=== PATIENT | female | born 1970 | race Caucasian/White ===

== ENCOUNTER 2016-12-31 | Outpatient (CLI) | payer OTHER | END 2016-12-31 07:31 | disposition critical access hospital (66) | CPT/HCPCS: A0425; A0429 ==

== ENCOUNTER 2016-12-31 08:00 | Emergency (ER) | payer OTHER ==
[2016-12-31] MEDS ORDERED: ONDANSETRON ODT 4 MG TABLET TL STA (09:54)
[2016-12-31] MEDS ORDERED: HYDROmorphone 1 MG/ML SYRINGE IM STA (09:54)
[2016-12-31] MEDS ORDERED: HYDROmorphone 1 MG/ML SYRINGE ONE (09:54)
[2016-12-31] MEDS ORDERED: ONDANSETRON ODT 4 MG TABLET ONE (09:55)
== END 2016-12-31 10:48 | disposition home or self-care (01) ==
DX: S16.1XXA Strain of muscle, fascia and tendon at neck level, initial encounter (principal); S40.012A Contusion of left shoulder, initial encounter; V89.2XXA Person injured in unspecified motor-vehicle accident, traffic, initial encounter; Y92.488 Other paved roadways as the place of occurrence of the external cause; Z95.0 Presence of cardiac pacemaker
CPT/HCPCS: 72125; 73030; 96372; 99283; 99284; J1170; Q0162

== ENCOUNTER 2017-06-14 17:03 | Emergency (ER) | payer OTHER ==
[2017-06-14] MEDS ORDERED: AMOX/CLAV 875 MG/125 MG TABLET PO STA (17:43)
[2017-06-14] MEDS ORDERED: TETANUS/DIPHTHERIA/PERTUSSIS 0.5 ML SYRINGE IM ONE ×2 (17:43→17:47)
[2017-06-14] MEDS ORDERED: ACETAMINOPHEN 325 MG TABLET PO STA (17:43)
[2017-06-14] MEDS ORDERED: AMOX/CLAV 875 MG/125 MG TABLET PO ONE (17:47)
[2017-06-14] MEDS ORDERED: ACETAMINOPHEN 325 MG TABLET PO ONE (17:47)
[2017-06-14] MEDS ORDERED: HYDROCORTISONE SUCCINATE 100 MG/2 ML VIAL IVP STA ×2 (17:49→17:55)
[2017-06-14] MEDS ORDERED: HYDROCORTISONE SUCCINATE 100 MG/2 ML VIAL IVP ONE (17:54)
--- NOTE | 2017-06-14 17:55 | ED Physician Documentation ---
History of Present Illness - Stated complaint Stated Complaint: RT HAND CAT BITE - Chief complaint Chief Complaint: Ext Problem - Additonal information Additional information: hx from pt 46 f bit by her healthy immunized cat who was frightened by a dog bit at base of dominant right hand approx 10-15 after the bite she developed local swelling and some dec sensation the the thumb hx severe infection to L hand following a cat bite which required surgery she take florinef for her heart / low BP and needs a stress dose of hydrocortisone Review of Systems Constitutional: denies: Fever Skin: reports: Bite / sting Musculoskeletal: reports: Extremity swelling Neurologic: reports: Numbness Immunocompromised: denies: Immunocompromised (on florinef so slightly) PD PAST MEDICAL HISTORY - Past Medical History Cardiovascular: Other Respiratory: None Neuro: None Endocrine/Autoimmune: None GI: GERD REGISTERED NURSE SURGICAL SERVICES: None : None HEENT: None Psych: Depression Musculoskeletal: None Derm: None - Past Surgical History Past Surgical History: Yes General: Appendectomy, Gastric surgery /REGISTERED NURSE SURGICAL SERVICES: Hysterectomy Cardiovascular: Pacemaker - Present Medications Home Medications: Ambulatory Orders Medication Instructions Recorded Confirmed Amitriptyline [Elavil] 75 mg PO DAILY 03/05/15 06/14/17 Buprenorphine HCl/Naloxone HCl 1 tab PO DAILY 03/05/15 06/14/17 [Suboxone 2 mg-0.5 mg Sl Film] Diclofenac Potassium [Zipsor] 25 mg PO DAILY 03/05/15 06/14/17 Fludrocortisone [Florinef] 0.1 mg PO DAILY 03/05/15 06/14/17 Midodrine HCl 2.5 mg PO DAILY 03/05/15 06/14/17 PARoxetine [Paxil] 10 mg PO DAILY 03/05/15 06/14/17 Tizanidine HCl [Tizanidine HCl] 4 mg PO DAILY 12/31/16 06/14/17 Amox/Clav 875/125 [Augmentin] 1 each PO Q12H #10 tablet 06/14/17 Meloxicam 15 mg PO DAILY 06/14/17 06/14/17 - Allergies Allergies/Adverse Reactions: Allergies Allergy/AdvReac Type Severity Reaction Status Date / Time codeine Allergy Rash Verified 12/31/16 08:08 Sulfa (Sulfonamide Allergy Rash Verified 12/31/16 08:08 Antibiotics) - Social History Does the pt smoke?: No Smoking Status: Never smoker Does the pt drink ETOH?: No Does the pt have substance abuse?: No - Immunizations Immunizations are current?: No Immunizations: TDAP >10years/unknown - POLST Patient has POLST: No PD ED PE NORMAL - Vitals Vital signs reviewed: Yes - Cardiac Cardiac: RRR - Respiratory Respiratory: No respiratory distress, Clear bilaterally - Extremities Extremities: Other (R hand with puncture alamo to palmar / thenar eminence, tender, mild swelling, no erythema, able to flex and extend MCP and IP, sluight dec sensation to thumb, + cap refill) Results - Vitals Vitals: Vital Signs - 24 hr 06/14/17 17:05 Temperature 36.0 C L Heart Rate 105 H Respiratory 20 Rate Blood Pressure 150/101 H O2 Saturation 99 Oxygen O2 Source Room air PD MEDICAL DECISION MAKING - ED course ED course: wound carefully cleaned given augmentin and tdap as well as stress dose hydrocortisone will dc with 48 hr wound check Departure - Departure Disposition: Home, Self Care Clinical Impression: Cat bite Qualifiers: Encounter type: initial encounter Qualified Code(s): W55.01XA - Bitten by cat, initial encounter Condition: Good Instructions: ED Bite Animal General Follow-Up: Boni Lawson MD [Primary Care Provider] - (Friday for a wound check) Prescriptions: Amox/Clav 875/125 [Augmentin] 1 each PO Q12H #10 tablet Comments: Even with antibiotics, cat bites are notorious for getting infected. It is very very important that you get this wound rechecked in 48 hr - if you cannot be seen by your PMD come back to the ER and see me Friday before 4PM Return sooner if worse before then I am hopeful that the sensation will return - if the bite had lacerated the nerve the thumb would have become instantly numb not slowly over 10-15 minutes Both your heart rate and your blood pressure were elevated - please have them rechecked at your follow up appointment
[2017-06-14 18:30] VITALS: BP 148/89
== END 2017-06-14 18:33 | disposition home or self-care (01) ==
LOC: ED 17:03
DX: S61.451A Open bite of right hand, initial encounter (principal); W55.01XA Bitten by cat, initial encounter; K21.9 Gastro-esophageal reflux disease without esophagitis; Z98.84 Bariatric surgery status; R03.0 Elevated blood-pressure reading, without diagnosis of hypertension
CPT/HCPCS: 90471; 90715; 96374; 99283; A9270

== ENCOUNTER 2018-06-30 22:35 | Emergency (ER) | payer OTHER ==
--- NOTE | 2018-07-01 01:51 | ED Physician Documentation ---
PD HPI ABD PAIN - Stated complaint Stated Complaint: LOW AB PX - Chief complaint Chief Complaint: Abd Pain - History obtained from History obtained from: Patient - History of Present Illness Timing - onset: How many months ago (3-6 months (patient says three months, [id number] (present at bedside in room) says at least six months)) Timing - duration: Months Timing - details: Still present, Waxing and waning Improved by: Laying still Worsened by: Moving, Palpation Associated symptoms: Nausea, Vomiting. No: Fever Similar symptoms before: Other (see below) - Additional information Additional information: ongoing pain across pelvis for several months. was seen at [facility] a week ago, had US and then CT, revealed bilateral ovarian cysts (patient says several cysts on each ovary). she says she is to meet with a surgeon to have both ovaries removed. this was discussed when she was see by her home security professional earlier today. she presents to ED at this time due to ongoing pain, nausea, vomiting, cant keep anything down (per patient). Review of Systems Constitutional: reports: Reviewed and negative Throat: reports: Reviewed and negative Cardiac: reports: Reviewed and negative Respiratory: reports: Reviewed and negative GI: reports: Abdominal Pain, Nausea, Vomiting : denies: Dysuria, Frequency Skin: denies: Rash PD PAST MEDICAL HISTORY - Past Medical History Past Medical History: Yes Cardiovascular: Other Respiratory: None Neuro: None Endocrine/Autoimmune: None GI: None DIRECT CARE COUNSELOR: Ovarian cysts : None HEENT: None Psych: None Musculoskeletal: None Derm: None - Past Surgical History Past Surgical History: Yes General: Appendectomy, Gastric surgery /DIRECT CARE COUNSELOR: Hysterectomy Cardiovascular: Pacemaker - Present Medications Home Medications: Ambulatory Orders Medication Instructions Recorded Confirmed Amitriptyline [Elavil] 75 mg PO DAILY 03/05/15 06/14/17 Buprenorphine HCl/Naloxone HCl 1 tab PO DAILY 03/05/15 06/14/17 [Suboxone 2 mg-0.5 mg Sl Film] Diclofenac Potassium [Zipsor] 25 mg PO DAILY 03/05/15 06/14/17 Fludrocortisone [Florinef] 0.1 mg PO DAILY 03/05/15 06/14/17 Midodrine HCl 2.5 mg PO DAILY 03/05/15 06/14/17 PARoxetine [Paxil] 10 mg PO DAILY 03/05/15 06/14/17 Tizanidine HCl [Tizanidine HCl] 4 mg PO DAILY 12/31/16 06/14/17 Amox/Clav 875/125 [Augmentin] 1 each PO Q12H #10 tablet 06/14/17 Meloxicam 15 mg PO DAILY 06/14/17 06/14/17 Ondansetron Odt [Zofran] 4 mg TL Q6H PRN #14 tablet 07/01/18 Oxycodone HCl 5 - 10 mg PO Q6HR PRN #14 tablet 07/01/18 - Allergies Allergies/Adverse Reactions: Allergies Allergy/AdvReac Type Severity Reaction Status Date / Time codeine Allergy Rash Verified 07/01/18 01:34 Sulfa (Sulfonamide Allergy Rash Verified 07/01/18 01:34 Antibiotics) - Social History Does the pt smoke?: No Smoking Status: Never smoker Does the pt drink ETOH?: Yes ETOH Use: Liquor Does the pt have substance abuse?: No - Immunizations Immunizations are current?: Yes Immunizations: TDAP >10years/unknown - POLST Patient has POLST: No PD ED PE NORMAL - Vitals Vital signs reviewed: Yes - General General: Alert and oriented X 3, No acute distress, Well developed/nourished - HEENT HEENT: Moist mucous membranes - Cardiac Cardiac: RRR, No murmur - Respiratory Respiratory: No respiratory distress, Clear bilaterally - Abdomen Abdomen: Normal bowel sounds, Soft, Non distended, Other (mild tenderness bilateral lower quadrants/pelvis) - Back Back: No CVA TTP - Derm Derm: Normal color, Warm and dry, No rash - Extremities Extremities: No edema Results - Vitals Vitals: Vital Signs - 24 hr 07/01/18 07/01/18 07/01/18 03:21 05:00 06:35 Temperature 37.1 C 36 C L Heart Rate 101 H 101 H 88 Respiratory 16 14 16 Rate Blood Pressure 129/87 H 112/82 H 116/68 O2 Saturation 99 96 100 Oxygen O2 Source Room air - Labs Labs: Laboratory Tests 07/01/18 07/01/18 07/01/18 02:25 02:25 03:30 WBC 6.3 RBC 4.19 L Hgb 13.2 Hct 39.0 MCV 93.1 MCH 31.6 H MCHC 33.9 RDW 13.4 Plt Count 240 MPV 7.8 L Neut # (Auto) 2.9 Lymph # (Auto) 2.9 [place] # (Auto) 0.4 Eos # (Auto) 0.1 Baso # (Auto) 0.0 Absolute Nucleated RBC 0.00 Nucleated RBC % 0.0 Sodium 138 Potassium 4.1 Chloride 100 L Carbon Dioxide 27 Anion Gap 11.0 BUN 10 Creatinine 0.9 Estimated GFR (MDRD) 67 L Glucose 103 H Calcium 8.5 Total Bilirubin 0.5 AST 42 ALT 28 Alkaline Phosphatase 89 Total Protein 6.2 L Albumin 3.3 Globulin 2.9 Albumin/Globulin Ratio 1.1 Lipase 25 Urine Color YELLOW Urine Clarity CLEAR Urine pH 6.5 Ur Specific [place] <=1.005 Urine Protein NEGATIVE Urine Glucose (UA) NEGATIVE Urine Ketones NEGATIVE Urine Occult Blood NEGATIVE Urine Nitrite NEGATIVE Urine Bilirubin NEGATIVE Urine Urobilinogen 0.2 (NORMAL) Ur Leukocyte Esterase NEGATIVE Ur Microscopic Review NOT INDICATED Urine Culture Comments NOT INDICATED - Rads (name of study) CT A/P Radiology: Prelim report reviewed, See rad report PD MEDICAL DECISION MAKING - ED course Complexity details: reviewed results, re-evaluated patient, considered differential, d/w patient, d/w family ED course: reassuring blood test results. CT reveals right adnexal findings, possibly ovarian cysts or hydrosalpinx. no findings that would suggest acute pathology that would require nor benefit from epfurther emergent testing or treatment at this time beyond symptom control. patient reported excellent relief of nausea with zofran. she reported some pain relief with dilaudid, given second dose. was in NAD, and laughing when I entered room for second reevaluation. we discussed test results, plan to discharge and f/u plan (return if worse, contact home security professional in AM to pursue earliest available appointment). patient seemed comfortable with this plan. Patients [id number] made it clear she was not happy with this plan: she feels that after so many months of discomfort, something needs to be done now. I explained that her symptoms have been controlled and the test results do not suggest an emergent process that requires aggressive management at this time. - Sepsis Event Vital Signs: Vital Signs - 24 hr 07/01/18 07/01/18 07/01/18 03:21 05:00 06:35 Temperature 37.1 C 36 C L Heart Rate 101 H 101 H 88 Respiratory 16 14 16 Rate Blood Pressure 129/87 H 112/82 H 116/68 O2 Saturation 99 96 100 Oxygen O2 Source Room air Departure - Departure Disposition: 01 Home, Self Care Clinical Impression: Cyst of ovary Condition: Good Instructions: ED Cyst Ovarian Follow-Up: KARINA SEWELL DO [Primary Care Provider] - Within 3 Days Prescriptions: Oxycodone HCl 5 - 10 mg PO Q6HR PRN #14 tablet PRN Reason: Pain Ondansetron Odt [Zofran] 4 mg TL Q6H PRN #14 tablet PRN Reason: Nausea / Vomiting Discharge Date/Time: 07/01/18 06:35
[2018-07-01] MEDS ORDERED: SODIUM CHLORIDE 0.9% 1,000 ML IV STA (02:08)
[2018-07-01] MEDS ORDERED: HYDROmorphone 1 MG/ML CARPUJECT IVP STA ×2 (02:08→04:29)
[2018-07-01] MEDS ORDERED: ONDANSETRON 4 MG/2 ML VIAL IVP STA (02:08)
[2018-07-01 02:40] LABS: BASOPHILS % (AUTO) 0.6 %; EOSINOPHILS # (AUTO) 0.1 10^3/uL (0.0-0.7); EOSINOPHILS % (AUTO) 1.9 %; HGB - HEMOGLOBIN 13.2 g/dL (12.0-16.0); LYMPHOCYTES # (AUTO) 2.9 10^3/uL (1.5-3.5); LYMPHOCYTES % (AUTO) 45.4 %; MEAN CORPUSCULAR HEMOGLOBIN 31.6 pg (27.0-31.0); MEAN CORPUSCULAR HGB CONC 33.9 g/dL (32.0-36.0); MEAN CORPUSCULAR VOLUME 93.1 fL (81.0-99.0); MEAN PLATELET VOLUME 7.8 fL (7.9-10.8); MONOCYTES # (AUTO) 0.4 10^3/uL (0.0-1.0); MONOCYTES % (AUTO) 5.8 %; NEUTROPHILS # (AUTO) 2.9 10^3/uL (1.5-6.6); NEUTROPHILS % (AUTO) 46.3 %; PLT - PLATELET COUNT 240 10^3/uL (130-450); RED BLOOD COUNT 4.19 10^6/uL (4.20-5.40); RED CELL DISTRIBUTION WIDTH 13.4 % (12.0-15.0); WHITE BLOOD COUNT 6.3 x10^3/uL (4.8-10.8)
[2018-07-01 02:45] LABS: ALBUMIN 3.3 g/dL (3.2-5.5); ALBUMIN/GLOBULIN RATIO 1.1 (1.0-2.2); BILIRUBIN,TOTAL 0.5 mg/dL (0.2-1.0); CALCIUM 8.5 mg/dL (8.5-10.3); CREATININE 0.9 mg/dL (0.4-1.0); TOTAL PROTEIN 6.2 g/dL (6.7-8.2)
[2018-07-01] MEDS ORDERED: IOPAMIDOL-300 100 ML VIAL ONE (02:59)
[2018-07-01] MEDS ORDERED: IOPAMIDOL-300 100 ML VIAL IVP ONE (03:23)
[2018-07-01 03:39] LABS: BILIRUBIN,URINE NEGATIVE (NEGATIVE); GLUCOSE, URINE (UA) NEGATIVE (NEGATIVE); KETONES,URINE (UA) NEGATIVE (NEGATIVE); LEUKOCYTE ESTERASE, URINE NEGATIVE (NEGATIVE); NITRITE,URINE NEGATIVE (NEGATIVE); OCCULT BLOOD,URINE NEGATIVE (NEGATIVE); PH,URINE 6.5 PH (5.0-7.5); PROTEIN,URINE NEGATIVE (NEGATIVE); UROBILINOGEN,URINE 0.2 (NORMAL) E.U./dL (NORMAL)
--- NOTE | 2018-07-01 03:46 | CT Report ---
Procedure Date: 07/01/2018 Accession Number: [id number] / [id number] Procedure: CT - Abdomen/Pelvis W/ CPT Code: FULL RESULT: EXAM: CT ABDOMEN AND PELVIS EXAM DATE: 07/01/2018 03:26 AM. CLINICAL HISTORY: Abdominal pain. History of multiple ovarian cysts. COMPARISONS: None. TECHNIQUE: Routine helical CT imaging was performed through the abdomen and pelvis. IV contrast: ISOVUE 300 100mL. Enteric contrast: No. Reconstructions: Coronal and sagittal. In accordance with CT protocol optimization, one or more of the following dose reduction techniques were utilized for this exam: automated exposure control, adjustment of mA and/or KV based on patient size, or use of iterative reconstructive technique. FINDINGS: Lung Bases: Unremarkable. Liver: Fatty infiltration. Gallbladder/Bile Ducts: Status post cholecystectomy. Spleen: Normal. Pancreas: Normal. Adrenal Glands: Normal. Kidneys: Normal. No masses or hydronephrosis. Peritoneal Cavity/Bowel: Moderate to large amount of stool in the colon and rectum. Small bowel loops measuring up to 4.0 cm with air-fluid levels. This may be related to gastric bypass. A definite bowel obstruction is not seen. No diverticulitis seen. No free air or free fluid. Normal-sized mesenteric lymph nodes. Appendix is not well seen. No evidence of appendicitis. Pelvic Organs: Lobulated enlarged partially cystic right adnexa measuring 5.3 x 5.1 cm. Uterus is not seen. Urinary bladder and left ovary are unremarkable. Vasculature: No aneurysms or other significant abnormality. Bones: Degenerative changes at L4-L5. Other: None. IMPRESSION: 1. Gastric bypass with some mildly dilated fluid-filled small bowel loops and air-fluid levels, possibly related to bypass. Definite obstruction not identified. 2. Moderate to large amount of stool in the colon and rectum. 3. Fatty liver. 4. Partially cystic right adnexal process measuring 5.3 x 5.1 cm. This could represent ovarian cysts and/or hydrosalpinx. Neoplastic process less likely but not entirely excluded. Consider ultrasound follow-up. 5. Appendix is not well seen. No evidence of appendicitis. RADIA
[2018-07-01 04:00] LABS: CLARITY,URINE CLEAR (CLEAR)
[2018-07-01 06:40] VITALS: BP 116/68
--- NOTE | 2018-07-01 12:15 | ED Physician Documentation ---
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
== END 2018-07-01 06:35 | disposition home or self-care (01) ==
LOC: ED 22:35
DX: N83.201 Unspecified ovarian cyst, right side (principal)
CPT/HCPCS: 36415; 74177; 80053; 81003; 83690; 85025; 96361; 96374; 96376; 99283; 99284; J1170; Q9967; 81001; 87086

== ENCOUNTER 2018-07-09 16:26 | Outpatient (CLI) | payer OTHER | END 2018-07-09 16:27 | disposition home or self-care (01) | LOC: LAB 16:26 | PROVIDERS: ATTEND Obstetrics & Gynecology | DX: N83.201 Unspecified ovarian cyst, right side (principal) | CPT/HCPCS: 36415; 86304 ==

== ENCOUNTER 2018-08-25 11:41 | Outpatient (CLI) | payer OTHER | END 2018-08-25 11:42 | disposition critical access hospital (66) | LOC: EMS 11:41 | PROVIDERS: ATTEND Surgery | DX: R07.9 Chest pain, unspecified (principal); M54.2 Cervicalgia; V43.52XA Car driver injured in collision with other type car in traffic accident, initial encounter; Y92.413 State road as the place of occurrence of the external cause | CPT/HCPCS: A0425; A0429 ==

== ENCOUNTER 2018-08-25 12:00 | Emergency (ER) | payer OTHER ==
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
[2018-08-25] MEDS ORDERED: IBUPROFEN 600 MG TABLET PO STA (12:55)
[2018-08-25] MEDS ORDERED: METHOCARBAMOL 500 MG TABLET PO STA (12:56)
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
[2018-08-25 14:07] VITALS: BP 126/82
== END 2018-08-25 14:10 | disposition home or self-care (01) ==
LOC: EDUNIT# → ED 12:00
DX: S16.1XXA Strain of muscle, fascia and tendon at neck level, initial encounter (principal); S39.012A Strain of muscle, fascia and tendon of lower back, initial encounter; V43.52XA Car driver injured in collision with other type car in traffic accident, initial encounter; Z95.0 Presence of cardiac pacemaker
CPT/HCPCS: 71046; 72125; 72131; 99283; A9270

== ENCOUNTER 2018-09-02 07:42 | Day surgery (SDC) | payer OTHER ==
--- NOTE | 2018-09-01 19:36 | PREOP HISTORY & PHYSICAL ---
DATE OF ADMISSION: 09/02/2018 Physician: Janene Beaver DO FACOG IDENTIFICATION: A 47-year-old G0. HISTORY OF PRESENT ILLNESS: Sofia presents today with her [id number] nearly for a scheduled presurgical visit. I first met Sofia on 07/09/2018. She was a referral from [facility] due to a complex right ovarian cyst and 8/10 pain. Sofia states that during her cycles about 6-7 months ago, she had significant pain that started in her back. The pain at that time was mild and Midol did help. The pain progressively got worse to the point where she was having dry heaves and could not move. Her teeth actually hurt. She experienced a constant ache. She does recall Dilaudid did help her pain. When her cycle ends, the pain does stop. She does have breast and nipple tenderness and an obnoxious cramping when her cycle ends. Her cycles last every 28 days and would be consistent with her menstruation. Sofia is status post hysterectomy. She does recall, she did have heavy menstruation and a history of endometriosis. When Sofia did have her hysterectomy, she recalls that she had a history of ruptured ovarian cysts. This pain really is very similar to such that she had. Currently, she is having hot flushes that is tolerable with a misting fan. She denies any night sweats. Sofia, at this point in time, would like to proceed to laparoscopic bilateral salpingectomy. I discussed with Sofia the risks, benefits, alternatives, indications, expectations of laparoscopic bilateral salpingo-oophorectomy with possible lysis of adhesions and excision or ablation of endometriotic implants. Included in our discussion were the risks of hemorrhage, infection and damage to surrounding organs, which may include, but is not limited to an inadvertent laceration, cauterization or ligation of adjacent intestines, bladder and ureters. Furthermore, with the surgery, she will definitely not be able to have children. With this type of surgery, she may have nerve pain and chronic pelvic pain secondary to adhesions. After Sofia's questions were answered to her satisfaction, she verbalized her desire to proceed with surgery. Consent forms have been signed. Currently, Sofia is doing well. Denies any nausea, vomiting, fevers, chills, diarrhea or constipation. PAST MEDICAL HISTORY: 1. Anxiety. 2. Cardiac arrhythmia. 3. 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 4. Hyperlipoproteinemia. 5. Impaired glucose tolerance. 6. Migraine headaches. 7. Rheumatoid arthritis in her hips. PAST SURGICAL HISTORY: 1. On 11/24/2008, TVH at [facility]. 2. On 07/25/2007, pacemaker implantation. 3. On 11/24/2004, gastric bypass. 4. In 1992, open appendectomy. 5. On 07/15/2018, a pacemaker generator change at [facility] with Dr. Adolfo Rowe. ALLERGIES: 1. TO CODEINE, WHICH SHE HAS HALLUCINATIONS. 2. SULFA DRUGS, WHICH SHE HAS A RASH. MEDICATIONS: 1. Amitriptyline 25 mg 1 tab p.o. at bedtime. 2. Buprenorphine - naloxone 2/0.5 mg. 3. Meloxicam 7.5 mg. 4. Metoprolol 25 mg. 5. Paxil 30 mg. 6. Tizanidine 4 mg. SOCIAL HISTORY: Denies any tobacco or illicit drug use. She does consume alcohol on a social basis. 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 Sofia is to Bob and her [id number] is Chen. PAST SURGICAL HISTORY: Nulligravida PAST GYNECOLOGIC HISTORY: She states the passers were within normal limits and denies any history of sexually transmitted diseases. Sofia did have heavy and painful periods. She does not recall that she had fertility treatments in the past and gained weight. In the past, she was on control pills and did well on them. S/p TVT in 2008. FAMILY HISTORY: Unknown as she was adopted. REVIEW OF SYSTEMS: Negative, unless otherwise stated. PHYSICAL EXAMINATION: VITAL SIGNS: Weight 199 pounds, height is 67 inches, BMI is 31.2, blood pressure 118/68. GENERAL: Sofia is a well-developed, well-nourished, female who appears to be older than her stated age. Sofia; however, is alert and oriented x3. She is very pleasant and easy to speak to. HEENT: Within normal limits. HEART: Regular, no murmurs or rubs. LUNGS: Lungs are clear to auscultation bilaterally. ABDOMEN: Nontender. No signs of peritonitis. She does have a well-healed right paramidline vertical incision. LABORATORY DATA: On ,08/01/2018, white count was 6.4, H and H 12.2 and 36.5, platelets 221, potassium 4.5, glucose 98, creatinine 0.86. On 07/09/2018, CA- 125 was 9.6. IMAGING DATA: On 05/29/2018, pelvic ultrasound shows uterus and cervix are surgically absent, right ovary inseparable from at least 3 simple ovarian and/or paraovarian cysts versus 1 or 2 cysts. The larger with a vascular internal septations of if 2 cysts present. A largest complex cyst versus 2 adjacent cysts 5.4 x 30. x 3.6 cm in aggregate and simple. A smaller simple cyst 2.5 cm ovarian tissue posterior and inferior. Normal blood flow aggregate size of right ovary including cyst is 6.0 x 4.3 x 4.5 cm. Left ovarian cyst is simple measuring 2.5 x 2.4 x 2.6 cm with some surrounding normal parenchyma and normal blood flow, entire left ovary 3.2 x 3.4 x 2.9 cm with 16 mL. No adnexal masses. No pelvic fluid. On 05/13/2018, CT of the abdomen and pelvis shows a right simple ovarian cyst in 2010 no longer evident, multicystic character right ovary 2012 more similar to present study, although ovary 3 x 4 x 6 cm status post gastric bypass, cholecystectomy and hysterectomy. ASSESSMENT: 1. A 47-year-old G0. 2. Bilateral ovarian cysts. 3. The patient reported history of endometriosis. 4. On Suboxone for chronic back pain. She has been told by her pain provider to stop Suboxone at least 1 day before surgery. PLAN: 1. We will proceed to a scheduled laparoscopic bilateral salpingo-oophorectomy with possible lysis of adhesions and possible excision and/or ablation of endometriotic implants on 09/02/2018. 2. Anticipate giving a Sofia a Depo estrogen in recovery, so that her recovery can be easier without worry about surgical menopause. We will discuss at future visits should we continue her on ERT. 3. I discussed with Sofia that her pain will be difficult to control given that she is currently on Suboxone. We will plan to have Sofia to continue with ibuprofen as well as Tylenol. In addition, she will be given a prescription for Dilaudid, #40 tablets 2 mg. I cautioned Sofia that she has to have good pain control if she is to heal appropriately. I did tell Sofia that she will be on Dilaudid for a short period of time. After all Sofia's questions were answered to her satisfaction, she verbalized her desire to proceed with surgery. Consent forms have been signed. Sofia to return to see me in 2 weeks for routine postoperative examination. Again, we will discuss option of continuing Sofia on ERT. TD: 09/01/2018 17:31 [email or web address]
[2018-09-02] MEDS ORDERED: ACETAMINOPHEN 1,000 MG/100 ML 100 ML IV ONE (07:48)
[2018-09-02] MEDS ORDERED: CELECOXIB 100 MG CAPSULE PO ONE (07:49)
[2018-09-02] MEDS ORDERED: LACTATED RINGERS 1,000 ML IV ONE ×2 (08:06→10:36)
--- NOTE | 2018-09-02 08:15 | ANESTHESIA ---
Pre-Anesthesia VS, & Labs - Diagnosis Chronic Pelvic pain - Procedure Laparoscopic Bilateral Salpingoohrectomy Vital Signs: Temp Pulse Resp BP Pulse Ox 36.1 C L 75 18 82/68 L 98 09/02/18 07:50 09/02/18 07:50 09/02/18 07:50 09/02/18 07:50 09/02/18 07:50 Height 5 ft 7 in Weight (kg) 90 kg Body Mass Index 30.8 - NPO >8 hours - Is Patient ?: No - Lab Results Lab results reviewed: Yes Home Medications and Allergies Amitriptyline [Elavil] 75 mg PO DAILY 03/05/15 Buprenorphine HCl/Naloxone HCl [Suboxone 2 mg-0.5 mg Sl Film] 1 tab PO DAILY 03/05/15 PARoxetine [Paxil] 10 mg PO DAILY 03/05/15 Tizanidine HCl 4 mg PO DAILY 12/31/16 Metoprolol Succinate 1 tab PO DAILY 08/25/18 Allergies/Adverse Reactions: Allergies Allergy/AdvReac Type Severity Reaction Status Date / Time codeine Allergy Rash Verified 07/01/18 01:34 Sulfa (Sulfonamide Allergy Rash Verified 07/01/18 01:34 Antibiotics) morphine AdvReac Headache Verified 08/25/18 12:11 Anes History & Medical History - Anesthetic History Anesthesia Complications: reports: No previous complications Family history of Anesthesia Complications: Denies Family history of Malignant Hyperthermia: Denies - Medical History Cardiovascular: reports: Other (Pacemaker) Pulmonary: reports: None Gastrointestinal: reports: None Urinary: reports: None Neuro: reports: None Musculoskeletal: reports: Rheumatoid arthritis (Hips and low back) Endocrine/Autoimmune: reports: None Blood Disorders: reports: None Skin: reports: None Smoking Status: Never smoker - Surgical History General: Appendectomy, Gastric surgery (Gastric Bypass) Cardiothoracic: Pacemaker Gynecologic: Hysterectomy Exam General: Alert, Oriented x3, Cooperative, No acute distress Dental: WNL Mouth Openin Fingerbreadth Neck Mobility: Normal Mallampati classification: II Thyromental Distance: 4-6 cm Respiratory: Lungs clear, Normal breath sounds, No respiratory distress, No accessory muscle use Cardiovascular: Regular rate, Normal S1, Normal S2, No murmurs Mental/Cognitive Status: Alert/Oriented X3, Normal for patient Cognitive Status: Within normal limits Plan Anesthesia Type: General (possible post op TAP block if unable to control pain with conventional methods. Risk and benefits discussed with patient and she agrees to proceed if necessary) Consent for Procedure(s) Verified and Reviewed: Yes Code Status: Attempt Resuscitation ASA classification: 2-Mild systemic disease Is this case an emergency?: No
[2018-09-02] MEDS ORDERED: BUPIVACAINE 0.5%-EPI 1:200000 PF 30 ML VIAL ONE (09:13)
[2018-09-02] MEDS ORDERED: ROCURONIUM 50 MG/5 ML VIAL IVP ONE (09:30)
[2018-09-02] MEDS ORDERED: LIDOCAINE-MPF 2% 5 ML VIAL IM ONE (09:30)
[2018-09-02] MEDS ORDERED: ONDANSETRON 4 MG/2 ML VIAL IVP ONE (09:30)
[2018-09-02] MEDS ORDERED: MIDAZOLAM 2 MG/2 ML VIAL IVP ONE (09:30)
[2018-09-02] MEDS ORDERED: DEXAMETHASONE 4 MG/ML VIAL IVP ONE (09:30)
[2018-09-02] MEDS ORDERED: KETOROLAC 30 MG/ML VIAL IVP ONE (09:30)
[2018-09-02] MEDS ORDERED: PROPOFOL 200 MG/20 ML VIAL IVP ONE (09:30)
[2018-09-02] MEDS ORDERED: fentaNYL 100 MCG/2 ML VIAL IVP ONE (09:30)
[2018-09-02] MEDS ORDERED: BUPIVACAINE 0.5%-EPI 1:200000 PF 30 ML VIAL SUBQ ONE ×2 (09:31)
[2018-09-02] MEDS ORDERED: LORazepam 2 MG/ML VIAL IVP PRN (11:05)
[2018-09-02] MEDS ORDERED: HYDROmorphone 0.5 MG/0.5 ML SYRINGE IVP PRN (11:05)
[2018-09-02] MEDS ORDERED: ONDANSETRON 4 MG/2 ML VIAL IVP PRN (11:05)
--- NOTE | 2018-09-02 11:05 | OPERATIVE REPORT ---
Operative Report - Other Other Information/Narrative: Date of Operation: 09/02/2018 Surgeon: Janene Beaver DO FACOG Hand Inserter Operator: Nik David MD FACOG FICS Account Associate: Percy Torres CRNA Anesthesia: GET Pre-Op Dx: 1. 47 yo G0 2. Right ovarian cyst Post-Op Dx: 1. 47 yo G0 2. Right ovarian cyst 3. Adhesions Procedures: 1. Laparoscopic right oophorectomy 2. Lysis of adhesions Findings: 1. Normal right ovary 2. Enlarged right ovarian cyst 3. Surgically absent uterus, fallopian tubes and left ovary 4. Significant adhesions between the small intestines and right abdominal sidewall, and small intestines and anterior pelvis Specimens: 1. Pelvic washings 2. Right ovary and cyst 3. Right ovarian cyst fluid Drains: None EBL: 10 mL Complications: None Operative note dictation #: [id number]
[2018-09-02] MEDS ORDERED: HYDROmorphone 2 MG TABLET ONE (11:42)
[2018-09-02 12:46] VITALS: BP 105/68
--- NOTE | 2018-09-02 13:23 | OPERATIVE REPORT ---
DATE OF OPERATION: 09/02/2018 SURGEON: Janene Beaver DO, FACOG RN DIABETES: Nik David MD, FACOG. MANAGER INTENSIVE CARE Percy Torres CRNA. ANESTHESIA: General endotracheal tube. PREOPERATIVE DIAGNOSES: 1. A 47-year-old G0. 2. Right ovarian cyst. POSTOPERATIVE DIAGNOSES: 1. A 47-year-old G0. 2. Right ovarian cyst. 3. Pelvic and abdominal adhesions. PROCEDURES: 1. Laparoscopic right oophorectomy. 2. Lysis of adhesions. FINDINGS: 1. Normal right ovary. 2. Enlarged right ovarian cyst. 3. Surgically absent uterus, fallopian tubes, and left ovary. 4. Significant adhesions between the small intestines and right abdominal sidewall as well as the small intestines and the anterior pelvis. SPECIMENS: 1. Pelvic washings. 2. Right ovary and cyst. 3. Right ovarian cyst fluid. DRAINS: None. ESTIMATED BLOOD LOSS: 10 mL COMPLICATIONS: None. BRIEF HISTORY: The patient is a patient of [facility] who presented to me on 07/09/2018 secondary right ovarian cyst as well as chronic pelvic pain. Workup revealed that patient had a right ovary and 3 simple ovarian and/or paraovarian cysts measuring 5.4 x 3.0 x 3.6 cm. A 05/13/2018 CT of the abdomen and pelvis showed an ovary measuring 6 x 4 x 6 cm. I discussed with patient the risks, benefits, alternatives, indications, and expectations of a laparoscopic bilateral salpingo-oophorectomy. We had a discussion of the risks of hemorrhage, infection, damage to surrounding organs. Patient was told that she had a history of endometriosis, which I do not have any reports confirming this. In any event, I discussed with patient that I may have to proceed to lysis of adhesions with excision or ablation of endometriotic implants. With the surgery there are risks of hemorrhage, infection, damage to surrounding organs, which may include but is not limited to inadvertent laceration, cauterization or ligation of the adjacent bladder, intestines and ureters. After the patient's questions were answered to her satisfaction, she verbalized her desire to proceed with surgery. Consent forms have been signed. OPERATION IN DETAIL: Patient was identified and consented and taken to the operating room with IV access was already in place. Sequential compression devices were placed on her lower extremities and turned on. Patient was then given a satisfactory general endotracheal tube anesthesia as per Percy Torres. She was then prepped and draped in normal sterile fashion in the supine position. Patient was then given a timeout. This correctly identified the patient, site for each of the procedures, and the procedures themselves. Patient was then prepped and draped in normal sterile fashion in the supine position. Antibiotics were not indicated in this case. Three laparoscopic port sites were identified in the abdomen. The first 2 were 5 mm ports placed in the right lower quadrant as well as in the subumbilical fold. Third incision was in the left lower quadrant and was about 12 mm in length. The lower quadrant sites were identified by finding the anterior superior iliac spine and then moving respectively 2 fingerbreadths superior and then medial to those locations. These port sites were injected with 0.5% lidocaine with epinephrine. Entrance into the abdomen was made directly with the Visiport trocar in the subumbilical fold. The CO2 gas was then used to insufflate the abdomen. Two of the port sites were placed under direct visualization of the camera. Inspection of the abdomen and pelvis found significant adhesions. The first set of adhesions, I encountered where in the right abdominal sidewall between the sidewall and the small intestine. These were taken down bluntly and with the LigaSure. No active bleeding was noted. The second set of adhesions encountered was a knuckle of small intestines that was adhesed to the peritoneum of the anterior pelvis, where I would imagine the bladder flap had been created during her hysterectomy. This knuckle of the intestines was basically pushing the adnexa down posteriorly so that I could not evaluate the adnexa adequately. This knuckle of the intestines was then freed up by doing sharp dissection as well as using a LigaSure. A forth 5 mm trocar port was placed in the midline of the lower abdomen as well as a mitchell catheter for better visualization of the anatomy during the dissection. Hemostasis was noted. The intestine appeared to be intact after lysis of adhesions. The pelvis was then further investigated. There was a surgically absent uterus as well as a left adnexa. There was a large right ovarian cyst as well as ovary. The ovary itself was within normal limits. The right ovary, however, was pretty socked into the ovarian fossa and posterior pelvis. Both blunt dissection as well as using the LigaSure, I was able to excise the right ovary and cyst. The infundibulopelvic ligament was also excised using a LigaSure. Hemostasis was noted. The right ovary and cyst were then placed in an EndoCatch bag and then removed. The cyst had to be decompressed via needle aspiration inside the EndoCatch bag. No cyst fluid was exposed to the abdomen or pelvis. The right ovary and cyst was removed intact through the bag. Reinspection of the pelvis revealed that there was no significant bleeding or spillage of stool in the pelvis. At this point in time, the procedure had been completed. All instruments were removed out of the abdomen and the CO2 gas was allowed to egress into the atmosphere, thus relieving the pneumoperitoneum. The 12 mm port site was closed with a Marcus-Delbert trocar closing system and an 0-Vicryl. All 4 laparoscopic port sites were closed with 4-0 Monocryl in a subcuticular fashion. Dermabond was placed on top of the incisions as well. Patient's Mitchell catheter was removed at the termination of the procedure. All sponge, lap, and needle counts were correct per nurse's report. The patient was taken back to recovery room in stable condition. I will be very aggressive on patient's pain control as she is on chronic Suboxone. She has a prescription of p.o. Dilaudid at home. Unfortunately, we do not have any Depo estrogen available in the hospital, so I will fax a prescription for estradiol 1 mg 1 tab p.o. daily to [facility] in [place], [place]. Patient is to see me in 2 weeks at [facility] for routine postoperative visit or sooner should she have any difficulty with fevers, chills, abdominal pain or hot flashes and night sweats. TD: 09/02/2018 11:35 ROGERIO
[2018-09-03] MEDS ORDERED: ESTRADIOL 1 MG TABLET PO SCH (09:00)
== END 2018-09-02 07:43 | disposition home or self-care (01) ==
LOC: SDS 07:42
PROVIDERS: ATTEND Obstetrics & Gynecology
PROC: 0UB04ZZ Excision of Right Ovary, Percutaneous Endoscopic Approach (ICD-10-PCS; principal; 2018-09-02 08:45)
DX: N83.201 Unspecified ovarian cyst, right side (principal); N73.6 Female pelvic peritoneal adhesions (postinfective); Z90.710 Acquired absence of both cervix and uterus; Z90.79 Acquired absence of other genital organ(s); Z90.721 Acquired absence of ovaries, unilateral; Z95.0 Presence of cardiac pacemaker; M06.9 Rheumatoid arthritis, unspecified
CPT/HCPCS: 58661; 88108; 88305; A9270; J0131; J7120

== ENCOUNTER 2018-09-11 17:53 | Emergency (ER) | payer OTHER ==
[2018-09-11 18:58] LABS: BASOPHILS # (AUTO) 0.1 10^3/uL (0.0-0.1); BASOPHILS % (AUTO) 1.1 %; EOSINOPHILS # (AUTO) 0.1 10^3/uL (0.0-0.7); EOSINOPHILS % (AUTO) 1.5 %; HGB - HEMOGLOBIN 13.5 g/dL (12.0-16.0); LYMPHOCYTES # (AUTO) 2.5 10^3/uL (1.5-3.5); LYMPHOCYTES % (AUTO) 31.7 %; MEAN CORPUSCULAR HEMOGLOBIN 31.4 pg (27.0-31.0); MEAN CORPUSCULAR HGB CONC 33.4 g/dL (32.0-36.0); MEAN PLATELET VOLUME 7.3 fL (7.9-10.8); MONOCYTES # (AUTO) 0.5 10^3/uL (0.0-1.0); MONOCYTES % (AUTO) 5.8 %; NEUTROPHILS # (AUTO) 4.7 10^3/uL (1.5-6.6); NEUTROPHILS % (AUTO) 59.9 %; PLT - PLATELET COUNT 385 10^3/uL (130-450); RED BLOOD COUNT 4.31 10^6/uL (4.20-5.40); RED CELL DISTRIBUTION WIDTH 14.6 % (12.0-15.0); WHITE BLOOD COUNT 7.9 x10^3/uL (4.8-10.8)
[2018-09-11 19:13] LABS: ALBUMIN 3.9 g/dL (3.2-5.5); ALBUMIN/GLOBULIN RATIO 1.1 (1.0-2.2); BILIRUBIN,TOTAL 0.4 mg/dL (0.2-1.0); CALCIUM 9.4 mg/dL (8.5-10.3); CREATININE 0.8 mg/dL (0.4-1.0); TOTAL PROTEIN 7.3 g/dL (6.7-8.2)
[2018-09-11] MEDS ORDERED: SODIUM CHLORIDE 0.9% 1,000 ML IV ONE (19:13)
[2018-09-11] MEDS ORDERED: HYDROmorphone 1 MG/ML CARPUJECT IVP STA (19:13)
--- NOTE | 2018-09-11 19:16 | ED Physician Documentation ---
PD HPI ABD PAIN - Stated complaint Stated Complaint: L SIDE AB PX/9 DAYS POST OP - Chief complaint Chief Complaint: Abd Pain - History obtained from History obtained from: Patient - History of Present Illness Timing - onset: How many days ago (2) Timing - duration: Days (2) Pain level max: 8 Pain level now: 8 Quality: Aching, Pain Location: LLQ Radiation: Other Improved by: Laying still Worsened by: Moving, Position Associated symptoms: Nausea. No: Fever, Vomiting, Hematemesis, Diarrhea, Constipation, Melena, Hematochezia, Dysuria, Hematuria Recently seen: Surgery (Patient is 9 days status post laparoscopic oophorectomy, bilateral.) Review of Systems Ten Systems: 10 systems reviewed and negative Constitutional: denies: Fever, Chills Ears: denies: Ear pain Nose: denies: Rhinorrhea / runny nose, Congestion Throat: denies: Sore throat Cardiac: denies: Chest pain / pressure Respiratory: denies: Cough GI: reports: Nausea. denies: Vomiting, Diarrhea : denies: Dysuria Skin: denies: Rash Musculoskeletal: denies: Neck pain, Back pain Neurologic: denies: Headache PD PAST MEDICAL HISTORY - Past Medical History Cardiovascular: Arrhythmia, Other Respiratory: None Neuro: None Endocrine/Autoimmune: None GI: None COUNTER INSTALLER: Ovarian cysts : None HEENT: None Psych: None Musculoskeletal: Chronic back pain Derm: None - Past Surgical History Past Surgical History: Yes General: Appendectomy, Gastric surgery (Gastric Bypass) /COUNTER INSTALLER: Hysterectomy Cardiovascular: Pacemaker - Present Medications Home Medications: Ambulatory Orders Medication Instructions Recorded Confirmed Amitriptyline [Elavil] 75 mg PO DAILY 03/05/15 06/14/17 Buprenorphine HCl/Naloxone HCl 1 tab PO DAILY 03/05/15 06/14/17 [Suboxone 2 mg-0.5 mg Sl Film] PARoxetine [Paxil] 10 mg PO DAILY 03/05/15 06/14/17 Tizanidine HCl 4 mg PO DAILY 12/31/16 06/14/17 Metoprolol Succinate 1 tab PO DAILY 08/25/18 08/25/18 Tizanidine HCl [Zanaflex] 4 mg PO Q6H PRN #25 capsule 08/25/18 Oxycodone HCl/Acetaminophen 1 - 2 each PO Q6H PRN #14 tablet 09/11/18 [Percocet 5-325 mg Tablet] - Allergies Allergies/Adverse Reactions: Allergies Allergy/AdvReac Type Severity Reaction Status Date / Time codeine Allergy Rash Verified 09/11/18 18:00 Sulfa (Sulfonamide Allergy Rash Verified 09/11/18 18:00 Antibiotics) morphine AdvReac Headache Verified 09/11/18 18:00 - Social History Does the pt smoke?: No Smoking Status: Never smoker Does the pt drink ETOH?: Yes Does the pt have substance abuse?: No - Immunizations Immunizations are current?: Yes Immunizations: TDAP >10years/unknown - POLST Patient has POLST: No PD ED PE NORMAL - Vitals Vital signs reviewed: Yes - General General: Alert and oriented X 3, No acute distress - HEENT HEENT: Moist mucous membranes - Neck Neck: Supple, no meningeal sign - Cardiac Cardiac: RRR - Respiratory Respiratory: No respiratory distress, Clear bilaterally - Abdomen Abdomen: Soft, Non distended, Other (Incisions are clean dry intact without signs of infection. She is diffusely tender to palpation, mainly in the left lower quadrant. She does have rebound tenderness.) - Back Back: No CVA TTP, No spinal TTP - Derm Derm: Warm and dry - Extremities Extremities: No edema, No calf tenderness / cord - Neuro Neuro: Alert and oriented X 3 - Psych Psych: Normal mood, Normal affect Results - Vitals Vitals: Vital Signs - 24 hr 09/11/18 09/11/18 17:56 21:10 Temperature 36.4 C L Heart Rate 81 84 Respiratory 16 18 Rate Blood Pressure 149/89 H 130/72 O2 Saturation 100 100 Oxygen O2 Source Room air - Labs Labs: Laboratory Tests 09/11/18 09/11/18 09/11/18 18:46 18:46 19:55 WBC 7.9 RBC 4.31 Hgb 13.5 Hct 40.5 MCV 94.0 MCH 31.4 H MCHC 33.4 RDW 14.6 Plt Count 385 MPV 7.3 L Neut # (Auto) 4.7 Lymph # (Auto) 2.5 Toombs # (Auto) 0.5 Eos # (Auto) 0.1 Baso # (Auto) 0.1 Absolute Nucleated RBC 0.00 Nucleated RBC % 0.0 Sodium 139 Potassium 3.8 Chloride 103 Carbon Dioxide 27 Anion Gap 9.0 BUN 12 Creatinine 0.8 Estimated GFR (MDRD) 76 L Glucose 103 H Calcium 9.4 Total Bilirubin 0.4 AST 45 H ALT 49 Alkaline Phosphatase 99 Total Protein 7.3 Albumin 3.9 Globulin 3.4 Albumin/Globulin Ratio 1.1 Lipase 29 Urine Color YELLOW Urine Clarity CLEAR Urine pH 5.5 Ur Specific Appling 1.020 Urine Protein NEGATIVE Urine Glucose (UA) NEGATIVE Urine Ketones NEGATIVE Urine Occult Blood NEGATIVE Urine Nitrite NEGATIVE Urine Bilirubin NEGATIVE Urine Urobilinogen 0.2 (NORMAL) Ur Leukocyte Esterase NEGATIVE Ur Microscopic Review NOT INDICATED Urine Culture Comments NOT INDICATED - Rads (name of study) CT abdomen pelvis Radiology: Prelim report reviewed, EMP read contemporaneously, See rad report (No acute abnormality) PD MEDICAL DECISION MAKING - ED course Complexity details: reviewed results, re-evaluated patient, considered differential, d/w patient ED course: Patient is a 47-year-old female who presents to the emergency department with abdominal pain following a laparoscopic bilateral oophorectomy 9 days ago. No acute findings on laboratory testing or CT scan. Pain well controlled. Will place on pain medication for home and follow-up closely with her color control operator. She is well-appearing, nontoxic. Patient counseled regarding signs and symptoms for which I believe and urgent re-evaluation would be necessary. Patient with good understanding of and agreement to plan and is comfortable going home at this time This document was made in part using voice recognition software. While efforts are made to proofread this document, sound alike and grammatical errors may occur. Abdomen is still mildly tender on serial exam. Incisions are without signs of infection Departure - Departure Disposition: 01 Home, Self Care Clinical Impression: Postoperative pain Condition: Good Instructions: ED Abdominal Pain Unkn Cause Follow-Up: Janene Beaver DO [Provider Admit Priv/Credential] - Within 1 week Prescriptions: Oxycodone HCl/Acetaminophen [Percocet 5-325 mg Tablet] 1 - 2 each PO Q6H PRN #14 tablet PRN Reason: pain Comments: Your laboratory testing and CT scan are normal tonight. Will place you on pain medication for the next few days and see how you progress. Follow-up with Dr. Beaver for further evaluation. Do not drink alcohol or drive while on narcotic pain medicine. Note that many narcotic pain relievers also contain tylenol/acetaminophen. Please ensure that your total dose of acetaminophen from all sources does not exceed 3 grams (3000mg) per day. You may constipated on this medication, take a stool softener such as "Colace" twice a day while you are on it. Also recommend a peqc-idd-lohvpyy laxative such as senna or MiraLAX any day that you do not have a bowel movement. If you received narcotic pain medication in the emergency department, do not drive or operate machinery for the next 24 hours. Discharge Date/Time: 09/11/18 21:12
[2018-09-11] MEDS ORDERED: IOPAMIDOL-300 100 ML VIAL ONE (19:23)
[2018-09-11] MEDS ORDERED: IOPAMIDOL-300 100 ML VIAL IVP ONE (20:02)
[2018-09-11 20:09] LABS: BILIRUBIN,URINE NEGATIVE (NEGATIVE); GLUCOSE, URINE (UA) NEGATIVE (NEGATIVE); KETONES,URINE (UA) NEGATIVE (NEGATIVE); LEUKOCYTE ESTERASE, URINE NEGATIVE (NEGATIVE); NITRITE,URINE NEGATIVE (NEGATIVE); OCCULT BLOOD,URINE NEGATIVE (NEGATIVE); PH,URINE 5.5 PH (5.0-7.5); PROTEIN,URINE NEGATIVE (NEGATIVE); UROBILINOGEN,URINE 0.2 (NORMAL) E.U./dL (NORMAL)
[2018-09-11 20:12] LABS: CLARITY,URINE CLEAR (CLEAR)
--- NOTE | 2018-09-11 20:41 | CT Report ---
Reason: 9 days s/p lap oopherectomy, increased LLQ pain Procedure Date: 09/11/2018 Accession Number: [id number] / [id number] Procedure: CT - Abdomen/Pelvis W/ CPT Code: FULL RESULT: EXAM: CT ABDOMEN AND PELVIS EXAM DATE: 09/11/2018 08:10 PM. CLINICAL HISTORY: 9 days s/p lap oophorectomy. Increased LLQ pain. COMPARISONS: ABDOMEN/PELVIS W/ 07/01/2018 3:12 AM. TECHNIQUE: Routine helical CT imaging was performed through the abdomen and pelvis. IV contrast: 100 cc of Isovue-300. Enteric contrast: No. Reconstructions: Coronal and sagittal. In accordance with CT protocol optimization, one or more of the following dose reduction techniques were utilized for this exam: automated exposure control, adjustment of mA and/or KV based on patient size, or use of iterative reconstructive technique. FINDINGS: Lung Bases: Unremarkable. Liver: Normal. No masses. Gallbladder/Bile Ducts: Cholecystectomy. No dilated ducts.. Spleen: Normal. Pancreas: Normal. Adrenal Glands: Normal. Kidneys: Normal. No masses or hydronephrosis. Peritoneal Cavity/Bowel: Gastric bypass. No free fluid, free air or adenopathy. No masses or acute inflammatory process. Nonvisualized appendix. Pelvic Organs: Hysterectomy. Unremarkable bladder. Vasculature: No aneurysms or other significant abnormality. Bones: No significant abnormality. Other: None. IMPRESSION: Gastric bypass, cholecystectomy, and hysterectomy, otherwise unremarkable abdomen and pelvis CT. RADIA
[2018-09-11] MEDS ORDERED: oxyCODONE 5 MG TABLET PO STA (20:55)
[2018-09-11 21:10] VITALS: BP 130/72
== END 2018-09-11 21:12 | disposition home or self-care (01) ==
LOC: ED 17:53
DX: G89.18 Other acute postprocedural pain (principal)
CPT/HCPCS: 36415; 74177; 80053; 81003; 83690; 85025; 96374; 99283; 99284; A9270; J1170; Q9967; 81001; 87086

== ENCOUNTER 2019-11-12 11:13 | Emergency (ER) | payer OTHER ==
--- NOTE | 2019-11-12 12:28 | ED Physician Documentation ---
History of Present Illness - Stated complaint Stated Complaint: HEARING LOSS - Chief complaint Chief Complaint: Heent - History obtained from History obtained from: Patient - History of Present Illness Timing: How many days ago (4) Pain level max: 0 Pain level now: 0 - Additonal information Additional information: Patient was SCUBA diving on vacation recently, states decreased hearing for the past several days. Nothing makes it better or worse. Started after diving. Review of Systems Constitutional: denies: Fever, Chills Cardiac: denies: Chest pain / pressure Respiratory: denies: Cough GI: denies: Vomiting, Diarrhea Skin: denies: Rash Musculoskeletal: denies: Neck pain, Back pain PD PAST MEDICAL HISTORY - Past Medical History Cardiovascular: Arrhythmia, Other Respiratory: None Neuro: None Endocrine/Autoimmune: None GI: None MEDICAL DOCTOR NUCLEAR MEDICINE: Ovarian cysts : None HEENT: None Psych: None Musculoskeletal: Chronic back pain Derm: None - Past Surgical History Past Surgical History: Yes General: Appendectomy, Gastric surgery /MEDICAL DOCTOR NUCLEAR MEDICINE: Hysterectomy, Oophrectomy Cardiovascular: Pacemaker - Present Medications Home Medications: Ambulatory Orders Medication Instructions Recorded Confirmed Amitriptyline [Elavil] 75 mg PO DAILY 03/05/15 06/14/17 Buprenorphine HCl/Naloxone HCl 1 tab PO DAILY 03/05/15 06/14/17 [Suboxone 2 mg-0.5 mg Sl Film] PARoxetine [Paxil] 10 mg PO DAILY 03/05/15 06/14/17 Tizanidine HCl 4 mg PO DAILY 12/31/16 06/14/17 Metoprolol Succinate 1 tab PO DAILY 08/25/18 08/25/18 Tizanidine HCl [Zanaflex] 4 mg PO Q6H PRN #25 capsule 08/25/18 Oxycodone HCl/Acetaminophen 1 - 2 each PO Q6H PRN #14 tablet 09/11/18 [Percocet 5-325 mg Tablet] Cetirizine HCl/Pseudoephedrine 1 each PO BID PRN #30 tab.er.12h 11/12/19 [Zyrtec-D Tablet] - Allergies Allergies/Adverse Reactions: Allergies Allergy/AdvReac Type Severity Reaction Status Date / Time codeine Allergy Rash Verified 11/12/19 11:29 Sulfa (Sulfonamide Allergy Rash Verified 11/12/19 11:29 Antibiotics) morphine AdvReac Headache Verified 11/12/19 11:29 - Social History Does the pt smoke?: No Smoking Status: Never smoker Does the pt drink ETOH?: Yes Does the pt have substance abuse?: No - Immunizations Immunizations are current?: Yes Immunizations: TDAP >10years/unknown - POLST Patient has POLST: No PD ED PE NORMAL - Vitals Vital signs reviewed: Yes - General General: Alert and oriented X 3, No acute distress, Well developed/nourished - HEENT HEENT: PERRL, Moist mucous membranes, Pharynx benign, Other (Retracted tympanic membranes bilaterally with clear fluid with bubbles.) - Neck Neck: Supple, no meningeal sign - Cardiac Cardiac: RRR, Strong equal pulses - Respiratory Respiratory: No respiratory distress, Clear bilaterally - Derm Derm: Warm and dry - Neuro Neuro: Alert and oriented X 3 - Psych Psych: Normal mood, Normal affect Results - Vitals Vitals: Oxygen O2 Source Room air PD MEDICAL DECISION MAKING - ED course Complexity details: considered differential, d/w patient ED course: Patient with bilateral barotitis media from scuba diving. We will place her on decongestants for home. We will have her follow-up with her doctor for further care. No evidence of secondary infection. Patient counseled regarding signs and symptoms for which I believe and urgent re-evaluation would be necessary. Patient with good understanding of and agreement to plan and is comfortable going home at this time This document was made in part using voice recognition software. While efforts are made to proofread this document, sound alike and grammatical errors may occur. Departure - Departure Disposition: 01 Home, Self Care Clinical Impression: Barotitis media Qualifiers: Encounter type: initial encounter Qualified Code(s): T70.0XXA - Otitic barotrauma, initial encounter Condition: Good Instructions: ED Barotrauma Ear Follow-Up: KARINA SEWELL DO [Primary Care Provider] - Within 3 Days Prescriptions: Cetirizine HCl/Pseudoephedrine [Zyrtec-D Tablet] 1 each PO BID PRN #30 tab.er.12h PRN Reason: nasal congestion Comments: Use the medication as prescribed. Return if you worsen. If this continues to persist, you may need to be referred to an research executive and/or hyperbaric medicine. Discharge Date/Time: 11/12/19 12:36
[2019-11-12 12:36] VITALS: BP 135/86
== END 2019-11-12 12:36 | disposition home or self-care (01) ==
LOC: ED 11:13
DX: T70.0XXA Otitic barotrauma, initial encounter (principal); W94 Exposure to high and low air pressure and changes in air pressure
CPT/HCPCS: 99282; 99284

== ENCOUNTER 2019-12-28 20:56 | Emergency (ER) | payer OTHER ==
--- NOTE | 2019-12-28 20:57 | ED Physician Documentation ---
History of Present Illness - Stated complaint Stated Complaint: RT HAND SWELLING/REDNESS - History obtained from History obtained from: Patient (the patient is a 49 y/o f who p/w w a cc of right hand swelling and rednesss for 2 days. she denies any hx of MRSA. she reports several years ago she was bitten by a cat and developed an infection that required surgical intervention. she is right hand dominant.) Review of Systems Ten Systems: 10 systems reviewed and negative Constitutional: reports: Reviewed and negative Eyes: reports: Reviewed and negative Ears: reports: Reviewed and negative Nose: reports: Reviewed and negative Throat: reports: Reviewed and negative Cardiac: reports: Reviewed and negative Respiratory: reports: Reviewed and negative GI: reports: Reviewed and negative : reports: Reviewed and negative Skin: reports: Other (right hand swelling and redness) Musculoskeletal: reports: Reviewed and negative Neurologic: reports: Reviewed and negative Psychiatric: reports: Reviewed and negative Endocrine: reports: Reviewed and negative Immunocompromised: reports: Reviewed and negative PD PAST MEDICAL HISTORY - Past Medical History Cardiovascular: Arrhythmia, Other Respiratory: None Neuro: None Endocrine/Autoimmune: None GI: None SERVICE PLUMBER: Ovarian cysts : None HEENT: None Psych: None Musculoskeletal: Chronic back pain Derm: None - Past Surgical History Past Surgical History: Yes General: Appendectomy, Gastric surgery /SERVICE PLUMBER: Hysterectomy, Oophrectomy Cardiovascular: Pacemaker - Present Medications Home Medications: Ambulatory Orders Medication Instructions Recorded Confirmed Amitriptyline [Elavil] 75 mg PO DAILY 03/05/15 06/14/17 Buprenorphine HCl/Naloxone HCl 1 tab PO DAILY 03/05/15 06/14/17 [Suboxone 2 mg-0.5 mg Sl Film] PARoxetine [Paxil] 10 mg PO DAILY 03/05/15 06/14/17 Tizanidine HCl 4 mg PO DAILY 12/31/16 06/14/17 Metoprolol Succinate 1 tab PO DAILY 08/25/18 08/25/18 Tizanidine HCl [Zanaflex] 4 mg PO Q6H PRN #25 capsule 08/25/18 Oxycodone HCl/Acetaminophen 1 - 2 each PO Q6H PRN #14 tablet 09/11/18 [Percocet 5-325 mg Tablet] Cetirizine HCl/Pseudoephedrine 1 each PO BID PRN #30 tab.er.12h 11/12/19 [Zyrtec-D Tablet] Cephalexin [Keflex] 500 mg PO QID 10 Days #40 capsule 12/28/19 - Allergies Allergies/Adverse Reactions: Allergies Allergy/AdvReac Type Severity Reaction Status Date / Time codeine Allergy Rash Verified 12/28/19 20:58 Sulfa (Sulfonamide Allergy Rash Verified 12/28/19 20:58 Antibiotics) morphine AdvReac Headache Verified 12/28/19 20:58 - Social History Does the pt smoke?: No Smoking Status: Never smoker Does the pt drink ETOH?: Yes Does the pt have substance abuse?: No - Immunizations Immunizations are current?: Yes Immunizations: TDAP >10years/unknown - POLST Patient has POLST: No PD ED PE NORMAL - Vitals Vital signs reviewed: Yes - General General: Alert and oriented X 3, No acute distress - HEENT HEENT: PERRL - Neck Neck: Supple, no meningeal sign - Cardiac Cardiac: RRR, No murmur - Respiratory Respiratory: Clear bilaterally - Abdomen Abdomen: Normal bowel sounds, Soft, Non tender, Non distended - Derm Derm: Other (right hand swelling and redness to the dorsum of the right hand, no streaking, no crepitus, no epitrochlear LAD no axillary LAD NV intact, compartments are soft, SILT, radian,median, ulnar motor and sensory is intact, tenter feeder strength is 5/5.) - Extremities Extremities: Other (right hand swelling and redness to the dorsum of the right hand, no streaking, no crepitus, no epitrochlear LAD no axillary LAD NV intact, compartments are soft, SILT, radian,median, ulnar motor and sensory is intact, tenter feeder strength is 5/5.) - Neuro Neuro: Alert and oriented X 3 - Psych Psych: Normal mood, Normal affect Results - Vitals Vitals: Vital Signs - 24 hr 12/28/19 12/28/19 20:58 21:27 Temperature 36.6 C Heart Rate 92 Respiratory 14 16 Rate Blood Pressure 140/90 H O2 Saturation 99 Oxygen O2 Source Room air Departure - Departure Disposition: 01 Home, Self Care Clinical Impression: Cellulitis of right hand Condition: Good Instructions: ED Infec Skin Cellulitis Follow-Up: KARINA SEWELL DO [Primary Care Provider] - Prescriptions: Cephalexin [Keflex] 500 mg PO QID 10 Days #40 capsule
[2019-12-28 21:03] VITALS: BP 140/90
[2019-12-28] MEDS ORDERED: cephALEXin 250 MG CAPSULE PO STA (21:27)
--- NOTE | 2019-12-28 21:51 | XRAY Report ---
Reason: right hand swelling Procedure Date: 12/28/2019 Accession Number: [id number] / [id number] Procedure: XR - Hand 3 View RT CPT Code: Final Report FULL RESULT: EXAM: RIGHT HAND RADIOGRAPHY EXAM DATE: 12/28/2019 09:43 PM. CLINICAL HISTORY: Right hand swelling. Hand swelling and redness for 1.5 days. Tingling and itching. COMPARISON: None. TECHNIQUE: 3 views. FINDINGS: Bones: No acute displaced fractures or suspicious bony lesion. Small subchondral cyst within the proximal portion of the scaphoid. Incidental note made of ulnar minus variant. Joints: No dislocation. Soft Tissues: Mild dorsal soft tissue swelling about the hand. IMPRESSION: No acute osseous abnormality demonstrated. RADIA
== END 2019-12-28 22:12 | disposition home or self-care (01) ==
LOC: ED 20:56
DX: L03.113 Cellulitis of right upper limb (principal)
CPT/HCPCS: 73130; 99283; 99284; A9270

== ENCOUNTER 2021-11-01 14:55 | Outpatient (CLI) | payer OTHER | END 2021-11-01 14:56 | disposition critical access hospital (66) | LOC: EMS 14:55 | DX: M54.50 Low back pain, unspecified (principal) | CPT/HCPCS: A0425; A0429 ==

== ENCOUNTER 2021-11-01 15:28 | Emergency (ER) | payer OTHER ==
[2021-11-01] MEDS ORDERED: KETOROLAC 60 MG/2 ML VIAL IM STA (16:19)
[2021-11-01] MEDS ORDERED: DEXAMETHASONE 10 MG/ML VIAL IM STA (16:19)
[2021-11-01] MEDS ORDERED: HYDROmorphone 1 MG/ML CARPUJECT IM STA ×2 (16:19→17:32)
--- NOTE | 2021-11-01 16:25 | ED Physician Documentation ---
History of Present Illness - Stated complaint Stated Complaint: LOW BACK PX - Chief complaint Chief Complaint: Back Pain - History obtained from History obtained from: Patient - Additonal information Additional information: The patient comes to the emergency department for chief complaint of low back pain radiating down her right leg.Patient states that it started after a road trip to and from [place] from which the patient returned 4 days ago. The next day, she was unpacking her bags while sitting on the couch and after doing this, she got up and walked across the room and felt a sudden sharp pain in her low back. She states that she had to have her help her go lay down and that she has had severe pain when she gets up ever since. Patient is waited 3 days thinking it would go away and it just doesn't. Patient states that she has not had any trouble controlling bowels or bladder. She does not have any numbness or tingling or weakness in her lower extremities. She has a history of low back issues, and actually goes to a pain specialist for chronic pain management for her low back and hip pain, which she says is due to rheumatoid arthritis. Patient is managed on chronic Suboxone and gabapentin for this. Patient denies any other complaints at this time. No fever or chills. No urinary symptoms Review of Systems Ten Systems: 10 systems reviewed and negative Constitutional: reports: Reviewed and negative Eyes: reports: Reviewed and negative Ears: reports: Reviewed and negative Nose: reports: Reviewed and negative Throat: reports: Reviewed and negative Cardiac: reports: Reviewed and negative Respiratory: reports: Reviewed and negative GI: reports: Reviewed and negative : reports: Reviewed and negative Skin: reports: Reviewed and negative Musculoskeletal: reports: Back pain, Extremity pain Neurologic: reports: Reviewed and negative Psychiatric: reports: Reviewed and negative Endocrine: reports: Reviewed and negative Immunocompromised: reports: Reviewed and negative PD PAST MEDICAL HISTORY - Past Medical History Past Medical History: Yes Cardiovascular: Arrhythmia, Other Respiratory: None Neuro: None Endocrine/Autoimmune: None GI: None FIRE SPRINKLER INSTALLER: Ovarian cysts : None HEENT: None Psych: None Musculoskeletal: Chronic back pain Derm: None - Past Surgical History Past Surgical History: Yes General: Appendectomy, Gastric surgery /FIRE SPRINKLER INSTALLER: Hysterectomy, Oophrectomy Cardiovascular: Pacemaker - Present Medications Home Medications: Ambulatory Orders Medication Instructions Recorded Confirmed Buprenorphine HCl/Naloxone HCl 1 tab PO DAILY 03/05/15 11/01/21 [Suboxone 2 mg-0.5 mg Sl Film] Metoprolol Succinate 1 tab PO DAILY 08/25/18 11/01/21 Cetirizine HCl/Pseudoephedrine 1 each PO BID PRN #30 tab.er.12h 11/12/19 11/01/21 [Zyrtec-D Tablet] Cyclobenzaprine [Flexeril] 10 mg PO TID PRN #20 tablet 11/01/21 Gabapentin [Neurontin] 600 mg PO BID 11/01/21 11/01/21 HYDROcod/ACETAM 5/325 [[place] 5/325] 1 - 2 tablet PO Q6H PRN #14 tablet 11/01/21 predniSONE [Deltasone] 60 mg PO DAILY 5 Days #15 tablet 11/01/21 - Allergies Allergies/Adverse Reactions: Allergies Allergy/AdvReac Type Severity Reaction Status Date / Time codeine Allergy Rash Verified 11/01/21 15:37 Sulfa (Sulfonamide Allergy Rash Verified 11/01/21 15:37 Antibiotics) morphine AdvReac Headache Verified 11/01/21 15:37 - Social History Does the pt smoke?: No Smoking Status: Never smoker Does the pt drink ETOH?: Yes Does the pt have substance abuse?: No - Immunizations Immunizations are current?: Yes Immunizations: TDAP >10years/unknown - POLST Patient has POLST: No PD ED PE NORMAL - Vitals Vital signs reviewed: Yes - General General: Alert and oriented X 3, No acute distress, Well developed/nourished, Other (Patient is somewhat tearful but otherwise in no apparent distress.) - HEENT HEENT: Atraumatic, PERRL, EOMI, Moist mucous membranes - Neck Neck: Supple, no meningeal sign - Cardiac Cardiac: Strong equal pulses - Respiratory Respiratory: No respiratory distress - Abdomen Abdomen: Soft, Non tender, Non distended - Back Back: No CVA TTP, Other (Tenderness palpation over patient's lower lumbar spine and sacral spine. No step-off. Tenderness over right SI joint and down posterior thigh.) - Derm Derm: Normal color, Warm and dry, No rash - Extremities Extremities: No deformity, No edema, No calf tenderness / cord - Neuro Neuro: Alert and oriented X 3, turbine subassembler 2-12 intact, Normal speech - Psych Psych: Normal mood, Normal affect Results - Vitals Vitals: Oxygen O2 Source Room air - Rads (name of study) CT abdomen pelvis Radiology: Final report received, EMP read indepedently, See rad report (Hepatic steatosis; no spinal pathology.) PD MEDICAL DECISION MAKING - ED course Complexity details: reviewed results, re-evaluated patient, considered differential, d/w patient ED course: Patient was treated symptomatically with Toradol and Dilaudid and Decadron. She was sent for CT scan of the spine, Which showed no acute spinal intra-abdominal process, but incidentally, showed interval development of significant hepatic steatosis. I spoke with the patient about this. I have advised her to follow- up with her primary care physician about both this and her back pain. We have discussed symptomatic management at home and the usual indications for return.. Departure - Departure Disposition: Home, Self Care Clinical Impression: Back pain Qualifiers: Back pain location: low back pain Chronicity: acute Back pain laterality: right Sciatica presence: with sciatica Sciatica laterality: sciatica of right side Qualified Code(s): M54.41 - Lumbago with sciatica, right side Condition: Stable Instructions: ED Sciatica Prescriptions: predniSONE [Deltasone] 60 mg PO DAILY 5 Days #15 tablet Cyclobenzaprine [Flexeril] 10 mg PO TID PRN #20 tablet PRN Reason: Spasms HYDROcod/ACETAM 5/325 [[place] 5/325] 1 - 2 tablet PO Q6H PRN #14 tablet PRN Reason: Pain Comments: Your CT scan does not show any obvious reason for your back pain. Most likely, you have strained the supportive structures of your back, either muscular or ligamentous, which is causing the pain you are having, as well as the sciatica. This should improve on its own given time. We will put you on some medication for symptomatic control, and you may follow-up with your primary doctor if you are not feeling better over the next week. On your CT scan, it was noted that you seem to have some liver enlargement and fatty infiltration of the liver that is new over the last 3 years. You should follow-up with your primary doctor to have your liver enzymes checked. You should avoid alcohol and excessive use of Tylenol until further evaluation of your liver has been done. Your prescriptions have been electronically transmitted to [facility]. Discharge Date/Time: 11/01/21 18:30
--- NOTE | 2021-11-01 17:03 | CT Report ---
PROCEDURE: Abdomen/Pelvis WO INDICATIONS: back pain TECHNIQUE: Noncontrast 5 mm thick sections acquired from the diaphragms to the symphysis. 5 mm coronal and sagi ttal reformats were then performed. For radiation dose reduction, the following was used: automated exposure control, adjustment of mA and/or kV according to patient size. COMPARISON: None. FINDINGS: Image quality: Excellent. ABDOMEN: Lung bases: Lung bases are clear. Heart size is normal. Pacemaker. Solid organs: Hepatomegaly, severe diffuse hepatic steatosis. No focal liver masses. Previously, live r was unremarkable. Spleen is normal in size. Gallbladder is surgically absent. Pancreas is normal i n contours. No adrenal nodules. Kidneys are normal in size, without hydronephrosis or nephrolithias is. Peritoneum and bowel: Remote gastric bypass. Unenhanced bowel loops demonstrate normal wall thicknes s and caliber. No free fluid or air. Nodes and vessels: No retroperitoneal or mesenteric adenopathy by size criteria. Aorta and inferior vena cava are normal in caliber. Miscellaneous: No ventral hernias. PELVIS: Genitourinary: Bladder wall thickness is normal. Miscellaneous: No inguinal hernias or adenopathy. Uterus is surgically absent. Bones: No suspicious bony lesions. No vertebral body compression fractures. IMPRESSION: 1. Interval development of hepatomegaly and severe diffuse hepatic steatosis. 2. No evidence of acute abdominal process. Reviewed by: Remy Lemon MD on 11/01/2021 5:02 PM PST Approved by: Remy Lemon MD on 11/01/2021 5:02 PM PST Station ID: [id number]
[2021-11-01] MEDS ORDERED: CYCLOBENZAPRINE 10 MG TABLET PO STA (17:33)
[2021-11-01 18:06] VITALS: BP 156/91
== END 2021-11-01 18:30 | disposition home or self-care (01) ==
LOC: ED 15:28
DX: M54.41 Lumbago with sciatica, right side (principal); K76.0 Fatty (change of) liver, not elsewhere classified
CPT/HCPCS: 74176; 96372; 99284; A9270; J1170

== ENCOUNTER 2023-05-09 11:50 | Emergency (ER) | payer OTHER ==
--- OUTSIDE RECORDS SUMMARY | 2023-05-09 13:47 | EXTERNAL MEDICAL SUMMARY RPT | Continuity of Care Document ---
Author Name Unknown Address [address] [place] [address] Phone Organization [facility] Address [address] [place] [address] Phone Care Team Providers Care [employer] Name Role Phone Unavailable Unavailable Unavailable Tyson Bui Unavailable Unavailable Allergies and Intolerances date description facility type (no date) Sulfa (Sulfonamide Antibiotics) [facility] (unknown) Problems date description facility 2023-03-31 10:48 Iron deficiency anemia, [facility] 2023-03-31 11:05 Iron deficiency anemia, [facility] 2023-03-31 11:20 Iron deficiency anemia, [facility] 2023-03-31 11:27 Iron deficiency anemia, [facility] 2023-03-31 13:34 Iron deficiency anemia, [facility] 2023-03-31 14:15 Iron deficiency anemia, [facility] 2023-03-31 14:20 Iron deficiency anemia, [facility] 2023-03-31 14:44 Iron deficiency anemia, [facility] Procedures date description facility 2023-03-31 00:00 Colonoscopy [facility] 2023-03-31 00:00 Esophagogastroduodenoscopy [facility] Results/Labs test date author facility value unit interpretation Result panel 1 (unknown) (no date) (unknown) (unknown) (no value) (units unknown) 28095-5 (unknown) (no date) (unknown) (unknown) (no value) (units unknown) 08081-9 (unknown) (no date) (unknown) (unknown) (no value) (units unknown) 78675-9 (unknown) (no date) (unknown) (unknown) (no value) (units unknown) 39294-5 (unknown) (no date) (unknown) (unknown) (no value) (units unknown) 77228-1 (unknown) (no date) (unknown) (unknown) (no value) (units unknown) 11405-2 (unknown) (no date) (unknown) (unknown) (no value) (units unknown) 10616-3 (unknown) (no date) (unknown) (unknown) (no value) (units unknown) (unknown) (unknown) (no date) (unknown) (unknown) (no value) (units unknown) (unknown) (unknown) (no date) (unknown) (unknown) (no value) (units unknown) (unknown) (unknown) (no date) (unknown) (unknown) (no value) (units unknown) (unknown) (unknown) (no date) (unknown) (unknown) (no value) (units unknown) (unknown) (unknown) (no date) (unknown) (unknown) (no value) (units unknown) (unknown) (unknown) (no date) (unknown) (unknown) (no value) (units unknown) (unknown) (unknown) (no date) (unknown) (unknown) Comment: (units unknown) 43250-8 (unknown) (no date) (unknown) (unknown) Comment: (units unknown) (unknown) Result panel 2 (unknown) (no date) (unknown) (unknown) (no value) (units unknown) (unknown) (unknown) (no date) (unknown) (unknown) [id number] (units unknown) (unknown) (unknown) (no date) (unknown) (unknown) 03/31/23 1134 (units unknown) (unknown) (unknown) (no date) (unknown) (unknown) 03/31/23 1135 (units unknown) (unknown) (unknown) (no date) (unknown) (unknown) 52-year-old female w ith a history of gastric bypass, iron-deficiency anemia. (units unknown) (unknown) (unknown) (no date) (unknown) (unknown) ASA Class (for procedural sedation): III (units unknown) (unknown) (unknown) (no date) (unknown) (unknown) Age/Sex: 52 / F (units unknown) (unknown) (unknown) (no date) (unknown) (unknown) Allergies (units unknown) (unknown) (unknown) (no date) (unknown) (unknown) Allergy/AdvReac Type Severity Reaction Status Date / Time (units unknown) (unknown) (unknown) (no date) (unknown) (unknown) Antibiotics) (units unknown) (unknown) (unknown) (no date) (unknown) (unknown) Appearance: grossly normal (units unknown) (unknown) (unknown) (no date) (unknown) (unknown) Assessment + Plan narrative: (units unknown) (unknown) (unknown) (no date) (unknown) (unknown) Assessment + Plan (units unknown) (unknown) (unknown) (no date) (unknown) (unknown) Cardio (units unknown) (unknown) (unknown) (no date) (unknown) (unknown) Changes to H+P: No (units unknown) (unknown) (unknown) (no date) (unknown) (unknown) Chest (units unknown) (unknown) (unknown) (no date) (unknown) (unknown) Chest: normal inspection of the chest (units unknown) (unknown) (unknown) (no date) (unknown) (unknown) Chief complaint: EGD/Colonoscopy (units unknown) (unknown) (unknown) (no date) (unknown) (unknown) Const (units unknown) (unknown) (unknown) (no date) (unknown) (unknown) : 1970 Acct:[id number] (units unknown) (unknown) (unknown) (no date) (unknown) (unknown) Date Patient Seen: 03/31/23 (units unknown) (unknown) (unknown) (no date) (unknown) (unknown) Date of Service: 03/31/23 (units unknown) (unknown) (unknown) (no date) (unknown) (unknown) EGD and colonoscopy are pursued today. (units unknown) (unknown) (unknown) (no date) (unknown) (unknown) Effort + Inspection: normal respiratory effort (units unknown) (unknown) (unknown) (no date) (unknown) (unknown) Exam (units unknown) (unknown) (unknown) (no date) (unknown) (unknown) Extrem (units unknown) (unknown) (unknown) (no date) (unknown) (unknown) Eyes (units unknown) (unknown) (unknown) (no date) (unknown) (unknown) GI (units unknown) (unknown) (unknown) (no date) (unknown) (unknown) Gastric bypass statu s for obesity (units unknown) (unknown) (unknown) (no date) (unknown) (unknown) General: appearance normal, both eyes and all related structures (units unknown) (unknown) (unknown) (no date) (unknown) (unknown) General: cooperative (units unknown) (unknown) (unknown) (no date) (unknown) (unknown) General: no rashes o r lesions noted (units unknown) (unknown) (unknown) (no date) (unknown) (unknown) General: normal to inspection and no pedal edema (units unknown) (unknown) (unknown) (no date) (unknown) (unknown) General: patient carolann rt and patient awake (units unknown) (unknown) (unknown) (no date) (unknown) (unknown) H/O: hysterectomy (units unknown) (unknown) (unknown) (no date) (unknown) (unknown) HENMT (units unknown) (unknown) (unknown) (no date) (unknown) (unknown) Head: normal to inspection (units unknown) (unknown) (unknown) (no date) (unknown) (unknown) History + Physical Report (units unknown) (unknown) (unknown) (no date) (unknown) (unknown) History + Physical reviewed/Exam performed by Physician: Yes (units unknown) (unknown) (unknown) (no date) (unknown) (unknown) History of Present Illness (units unknown) (unknown) (unknown) (no date) (unknown) (unknown) Home Medications and Allergies (units unknown) (unknown) (unknown) (no date) (unknown) (unknown) Home Medications (units unknown) (unknown) (unknown) (no date) (unknown) (unknown) Hx of tonsillectomy (units unknown) (unknown) (unknown) (no date) (unknown) (unknown) I reviewed my recent office note. No significant changes. (units unknown) (unknown) (unknown) (no date) (unknown) (unknown) Inspection: normal t o inspection (units unknown) (unknown) (unknown) (no date) (unknown) (unknown) Interval Note (units unknown) (unknown) (unknown) (no date) (unknown) (unknown) [address] [address] (units unknown) (unknown) (unknown) (no date) (unknown) (unknown) Medical History (units unknown) (unknown) (unknown) (no date) (unknown) (unknown) Medication Instructi ons Recorded Confirmed Type (units unknown) (unknown) (unknown) (no date) (unknown) (unknown) Meds (units unknown) (unknown) (unknown) (no date) (unknown) (unknown) Narrative: (units unknown) (unknown) (unknown) (no date) (unknown) (unknown) Neck (units unknown) (unknown) (unknown) (no date) (unknown) (unknown) Neck: normal visual inspection (units unknown) (unknown) (unknown) (no date) (unknown) (unknown) Neuro (units unknown) (unknown) (unknown) (no date) (unknown) (unknown) PFSH (units unknown) (unknown) (unknown) (no date) (unknown) (unknown) Pacemaker (units unknown) (unknown) (unknown) (no date) (unknown) (unknown) Patient: Alex Hoskins MR#: [id number] (units unknown) (unknown) (unknown) (no date) (unknown) (unknown) Pre-operative Note (units unknown) (unknown) (unknown) (no date) (unknown) (unknown) Provider: Tyson Bui MD (units unknown) (unknown) (unknown) (no date) (unknown) (unknown) Psych (units unknown) (unknown) (unknown) (no date) (unknown) (unknown) ROS: Yes All systems reviewed with the patient and are negative except as (units unknown) (unknown) (unknown) (no date) (unknown) (unknown) Rate: regular rate (units unknown) (unknown) (unknown) (no date) (unknown) (unknown) Resp (units unknown) (unknown) (unknown) (no date) (unknown) (unknown) Review of Systems (units unknown) (unknown) (unknown) (no date) (unknown) (unknown) Signed By:<Electronically signed by Tyson Bui MD> (units unknown) (unknown) (unknown) (no date) (unknown) (unknown) Skin (units unknown) (unknown) (unknown) (no date) (unknown) (unknown) Suboxone 0.02 mg PO DAILY 03/31/23 03/31/23 History (units unknown) (unknown) (unknown) (no date) (unknown) (unknown) Sulfa (Sulfonamide Allergy Rash Verified 03/31/23 11:18 (units unknown) (unknown) (unknown) (no date) (unknown) (unknown) Surgical History (units unknown) (unknown) (unknown) (no date) (unknown) (unknown) Time Patient Seen: 11:34 (units unknown) (unknown) (unknown) (no date) (unknown) (unknown) amitriptyline 25 mg PO DAILY 03/31/23 03/31/23 History (units unknown) (unknown) (unknown) (no date) (unknown) (unknown) codeine Allergy Hallucinati Verified 03/31/23 11:24 (units unknown) (unknown) (unknown) (no date) (unknown) (unknown) gabapentin 200 mg PO BID 03/31/23 03/31/23 History (units unknown) (unknown) (unknown) (no date) (unknown) (unknown) metoprolol succinate 25 mg PO DAILY 03/31/23 03/31/23 History (units unknown) (unknown) (unknown) (no date) (unknown) (unknown) morphine Allergy Hallucinati Verified 03/31/23 11:24 (units unknown) (unknown) (unknown) (no date) (unknown) (unknown) ng (units unknown) (unknown) (unknown) (no date) (unknown) (unknown) otherwise documented (units unknown) (unknown) Result panel 3 (unknown) (no date) (unknown) (unknown) (no value) (units unknown) (unknown) (unknown) (no date) (unknown) (unknown) * This test was developed and its performance characteristics determined (units unknown) (unknown) (unknown) (no date) (unknown) (unknown) * (units unknown) (unknown) (unknown) (no date) (unknown) (unknown) Performed at: 01 (units unknown) (unknown) (unknown) (no date) (unknown) (unknown) . 01 (units unknown) (unknown) (unknown) (no date) (unknown) (unknown) . (units unknown) (unknown) (unknown) (no date) (unknown) (unknown) /HELEN 04/01/2023 1832 Local (units unknown) (unknown) (unknown) (no date) (unknown) (unknown) 0.1 x 0.1 x 0.1 cm t o 0.2 x 0.2 x 0.2 cm submitted entirely in 1 (units unknown) (unknown) (unknown) (no date) (unknown) (unknown) 0.2 x 0.2 x 0.2 cm submitted entirely in 1 cassette(s) (units unknown) (unknown) (unknown) (no date) (unknown) (unknown) 0.3 x 0.3 x 0.3 cm submitted entirely in 1 cassette(s) (units unknown) (unknown) (unknown) (no date) (unknown) (unknown) [address] [place] [address] (units unknown) (unknown) (unknown) (no date) (unknown) (unknown) [address] [place] [address] [phone] (units unknown) (unknown) (unknown) (no date) (unknown) (unknown) [id number], [id number], [id number], [id number], [id number] (units unknown) (unknown) (unknown) (no date) (unknown) (unknown) A. Jejunum, Biopsy: (units unknown) (unknown) (unknown) (no date) (unknown) (unknown) Administration. The FDA has determined that such clearance or approval is (units unknown) (unknown) (unknown) (no date) (unknown) (unknown) [place] [address] (units unknown) (unknown) (unknown) (no date) (unknown) (unknown) B. An immunohistochemical stain was performed to evaluate for Helicobacter (units unknown) (unknown) (unknown) (no date) (unknown) (unknown) B. Gastric Pouch, Biopsy: (units unknown) (unknown) (unknown) (no date) (unknown) (unknown) C. Descending Colon, Biopsy: (units unknown) (unknown) (unknown) (no date) (unknown) (unknown) CPT . (units unknown) (unknown) (unknown) (no date) (unknown) (unknown) Collection Date: 03/31/23 (units unknown) (unknown) (unknown) (no date) (unknown) (unknown) Colonic mucosa with benign lymphoid aggregate, but with no other (units unknown) (unknown) (unknown) (no date) (unknown) (unknown) Comment: (units unknown) (unknown) (unknown) (no date) (unknown) (unknown) D. Rectosigmoid, Biopsy: (units unknown) (unknown) (unknown) (no date) (unknown) (unknown) DD/ 0000 (units unknown) (unknown) (unknown) (no date) (unknown) (unknown) Date of : 1970 Admit Date: 03/31/23 (units unknown) (unknown) (unknown) (no date) (unknown) (unknown) Diagnosis: (units unknown) (unknown) (unknown) (no date) (unknown) (unknown) Dictated By: Sarah Jenkins MD (units unknown) (unknown) (unknown) (no date) (unknown) (unknown) Electronically sunni d: . (units unknown) (unknown) (unknown) (no date) (unknown) (unknown) Gastric mucosa with minimal chronic nonspecific inflammation. (units unknown) (unknown) (unknown) (no date) (unknown) (unknown) Gross description: . (units unknown) (unknown) (unknown) (no date) (unknown) (unknown) [facility] (units unknown) (unknown) (unknown) (no date) (unknown) (unknown) K29.80, K31.89, K29. 30, K63.89 (units unknown) (unknown) (unknown) (no date) (unknown) (unknown) [facility] Accession Number : [id number] (units unknown) (unknown) (unknown) (no date) (unknown) (unknown) [facility] (units unknown) (unknown) (unknown) (no date) (unknown) (unknown) MD Marques Anderson MD Phone: [phone] (units unknown) (unknown) (unknown) (no date) (unknown) (unknown) Dictating Dr: Sarah Jenkins MD (units unknown) (unknown) (unknown) (no date) (unknown) (unknown) MRV 04/04/2023 1431 Local (units unknown) (unknown) (unknown) (no date) (unknown) (unknown) Material submitted: . (units unknown) (unknown) (unknown) (no date) (unknown) (unknown) Microscopic: . (units unknown) (unknown) (unknown) (no date) (unknown) (unknown) NPI- [id number] (units unknown) (unknown) (unknown) (no date) (unknown) (unknown) NSAID-induced injury and an infectious etiology. The features also raise (units unknown) (unknown) (unknown) (no date) (unknown) (unknown) No Helicobacter pylo ri organisms identified on immunohistochemical (units unknown) (unknown) (unknown) (no date) (unknown) (unknown) No dysplasia or malignancy. (units unknown) (unknown) (unknown) (no date) (unknown) (unknown) No evidence of colit is or neoplasm. (units unknown) (unknown) (unknown) (no date) (unknown) (unknown) No evidence of colitis. (units unknown) (unknown) (unknown) (no date) (unknown) (unknown) No intestinal metaplasia, dysplasia, or malignancy identified. (units unknown) (unknown) (unknown) (no date) (unknown) (unknown) No. of containers..0 4 Tissue (units unknown) (unknown) (unknown) (no date) (unknown) (unknown) Ordering Physician: Tyson Bui MD (units unknown) (unknown) (unknown) (no date) (unknown) (unknown) PART A: jejunum - JEJUNUM (units unknown) (unknown) (unknown) (no date) (unknown) (unknown) PART B: gastrointestinal site - GASTRIC POUCH (units unknown) (unknown) (unknown) (no date) (unknown) (unknown) PART C: colon - DESCENDING COLON (units unknown) (unknown) (unknown) (no date) (unknown) (unknown) PART D: rectosigmoid junction - RECTOSIGMOID (units unknown) (unknown) (unknown) (no date) (unknown) (unknown) Part A: JEJUNUM: (units unknown) (unknown) (unknown) (no date) (unknown) (unknown) Part A: The findings are non-specific. Differential includes (units unknown) (unknown) (unknown) (no date) (unknown) (unknown) Part B: GASTRIC POUCH: (units unknown) (unknown) (unknown) (no date) (unknown) (unknown) Part C: DESCENDING COLON: (units unknown) (unknown) (unknown) (no date) (unknown) (unknown) Part D: RECTOSIGMOID: (units unknown) (unknown) (unknown) (no date) (unknown) (unknown) Pathologist provided ICD-10: (units unknown) (unknown) (unknown) (no date) (unknown) (unknown) Pathology Diagnostic Report (units unknown) (unknown) (unknown) (no date) (unknown) (unknown) Patient name: Sofia Hoskins (units unknown) (unknown) (unknown) (no date) (unknown) (unknown) Polypoid colonic muc paras with no neoplasm identified, consistent with (units unknown) (unknown) (unknown) (no date) (unknown) (unknown) Received in formalin are 2 fragment(s) of billings, soft tissue measuring (units unknown) (unknown) (unknown) (no date) (unknown) (unknown) Received in formalin are 3 fragment(s) of billings, soft tissue measuring (units unknown) (unknown) (unknown) (no date) (unknown) (unknown) Received in formalin is 1 fragment(s) of billings, soft tissue measuring (units unknown) (unknown) (unknown) (no date) (unknown) (unknown) See comment. (units unknown) (unknown) (unknown) (no date) (unknown) (unknown) Sarah Jenkins MD, Pathologist (units unknown) (unknown) (unknown) (no date) (unknown) (unknown) Signed By: 04/04/23 8412 (units unknown) (unknown) (unknown) (no date) (unknown) (unknown) Signed (units unknown) (unknown) (unknown) (no date) (unknown) (unknown) Small bowel-type muc paras with focal erosion, villous blunting, and (units unknown) (unknown) (unknown) (no date) (unknown) (unknown) Specimen Comment: A courtesy copy of this report has been sent to [phone] (units unknown) (unknown) (unknown) (no date) (unknown) (unknown) TD/TT: 04/04/23 1835 (units unknown) (unknown) (unknown) (no date) (unknown) (unknown) after resolution of inflammation may be helpful for further evaluation and (units unknown) (unknown) (unknown) (no date) (unknown) (unknown) by [facility]. It has n ot been cleared or approved by the U.S. Food and Drug (units unknown) (unknown) (unknown) (no date) (unknown) (unknown) cassette(s) (units unknown) (unknown) (unknown) (no date) (unknown) (unknown) celiac disease is suspected clinically, correlation with serologic studies (units unknown) (unknown) (unknown) (no date) (unknown) (unknown) evaluation. (units unknown) (unknown) (unknown) (no date) (unknown) (unknown) if clinically indicated. (units unknown) (unknown) (unknown) (no date) (unknown) (unknown) is recommended. Clinical correlation is recommended. A repeat biopsy (units unknown) (unknown) (unknown) (no date) (unknown) (unknown) mildly increased intraepithelial lymphocytes. (units unknown) (unknown) (unknown) (no date) (unknown) (unknown) mucosal redundancy. (units unknown) (unknown) (unknown) (no date) (unknown) (unknown) not necessary. This test is used for clinical purposes. It should not be (units unknown) (unknown) (unknown) (no date) (unknown) (unknown) organisms and is negative. The control stain showed appropriate reactivity. (units unknown) (unknown) (unknown) (no date) (unknown) (unknown) regarded as investigational or for research. (units unknown) (unknown) (unknown) (no date) (unknown) (unknown) significant diagnost ic alterations. (units unknown) (unknown) (unknown) (no date) (unknown) (unknown) the possibility of celiac disease in the appropriate clinical setting.If (units unknown) (unknown) Result panel 4 (unknown) (no date) (unknown) (unknown) (no value) (units unknown) (unknown) (unknown) (no date) (unknown) (unknown) [id number] (units unknown) (unknown) (unknown) (no date) (unknown) (unknown) 03/31/23 1412 (units unknown) (unknown) (unknown) (no date) (unknown) (unknown) 1. Await histopathology. 2. Contingent on histopathology, repeat EGD in the (units unknown) (unknown) (unknown) (no date) (unknown) (unknown) 1. Esophagus: The squamocolumnar junction correlated with the top of the (units unknown) (unknown) (unknown) (no date) (unknown) (unknown) 1. Gastric bypass anatomy (units unknown) (unknown) (unknown) (no date) (unknown) (unknown) 2. Friable GJ anastomosis and jejunal mucosa (on the jejunal side of said (units unknown) (unknown) (unknown) (no date) (unknown) (unknown) 2. Gastric pouch: Th e patient had a normal-sized gastric pouch. The mucosa in (units unknown) (unknown) (unknown) (no date) (unknown) (unknown) 3. Afferent limb: I could not confidently identify the afferent limb. There (units unknown) (unknown) (unknown) (no date) (unknown) (unknown) 3. Nonvisualized afferent limb (units unknown) (unknown) (unknown) (no date) (unknown) (unknown) 4. Efferent limb col on the exudate and some degree of mucosal friability seemed (units unknown) (unknown) (unknown) (no date) (unknown) (unknown) 4. Gastropathy (units unknown) (unknown) (unknown) (no date) (unknown) (unknown) 5. Colon polyp (units unknown) (unknown) (unknown) (no date) (unknown) (unknown) 5. Terminal ileum: T his appeared visually normal. (units unknown) (unknown) (unknown) (no date) (unknown) (unknown) 6. Colon: There was some mild scattered erythema throughout the left colon. (units unknown) (unknown) (unknown) (no date) (unknown) (unknown) 6. Hemorrhoids (units unknown) (unknown) (unknown) (no date) (unknown) (unknown) 7. Mild colonic erythema (units unknown) (unknown) (unknown) (no date) (unknown) (unknown) After the risks and benefits were explained, written and verbal informed consent (units unknown) (unknown) (unknown) (no date) (unknown) (unknown) Age/Sex: 52 / F (units unknown) (unknown) (unknown) (no date) (unknown) (unknown) Bowel prep adequate (units unknown) (unknown) (unknown) (no date) (unknown) (unknown) Complications: none (units unknown) (unknown) (unknown) (no date) (unknown) (unknown) : 1970 Acct:[id number] (units unknown) (unknown) (unknown) (no date) (unknown) (unknown) Date of Service: 03/31/23 (units unknown) (unknown) (unknown) (no date) (unknown) (unknown) Date of procedure: 03/31/23 (units unknown) (unknown) (unknown) (no date) (unknown) (unknown) Disposition: PACU (units unknown) (unknown) (unknown) (no date) (unknown) (unknown) EGD + Colonoscopy Note (units unknown) (unknown) (unknown) (no date) (unknown) (unknown) EGD with biopsies an d colonoscopy with biopsies and cold snare polypectomy (units unknown) (unknown) (unknown) (no date) (unknown) (unknown) Endoscopic diagnosis (units unknown) (unknown) (unknown) (no date) (unknown) (unknown) Impression: (units unknown) (unknown) (unknown) (no date) (unknown) (unknown) Indications: (units unknown) (unknown) (unknown) (no date) (unknown) (unknown) Iron-deficiency anemia (units unknown) (unknown) (unknown) (no date) (unknown) (unknown) [address] [address] (units unknown) (unknown) (unknown) (no date) (unknown) (unknown) No ulcerations were evident. There was a small 5-6 mm polyp at the rectosigmoid (units unknown) (unknown) (unknown) (no date) (unknown) (unknown) Operative Date/Time/Diagnoses (units unknown) (unknown) (unknown) (no date) (unknown) (unknown) Patient: Alex Hoskins MR#: [id number] (units unknown) (unknown) (unknown) (no date) (unknown) (unknown) Pediatric colonoscope (units unknown) (unknown) (unknown) (no date) (unknown) (unknown) Plan for aftercare: (units unknown) (unknown) (unknown) (no date) (unknown) (unknown) Post-op diagnosis: same (units unknown) (unknown) (unknown) (no date) (unknown) (unknown) Post-procedure (units unknown) (unknown) (unknown) (no date) (unknown) (unknown) Pre-op diagnosis: Iron-deficiency anemia (units unknown) (unknown) (unknown) (no date) (unknown) (unknown) Procedure + Clinicians (units unknown) (unknown) (unknown) (no date) (unknown) (unknown) Procedure Notes (units unknown) (unknown) (unknown) (no date) (unknown) (unknown) Procedure in detail: (units unknown) (unknown) (unknown) (no date) (unknown) (unknown) Provider: Tyson Bui MD (units unknown) (unknown) (unknown) (no date) (unknown) (unknown) Random biopsies were taken from descending colon for histopathologic analysis. (units unknown) (unknown) (unknown) (no date) (unknown) (unknown) SCOAP/Timeout: Done (units unknown) (unknown) (unknown) (no date) (unknown) (unknown) Same procedure as scheduled: Yes (units unknown) (unknown) (unknown) (no date) (unknown) (unknown) Scope withdrawal destinee e: 9 minutes (units unknown) (unknown) (unknown) (no date) (unknown) (unknown) Sedation minutes: 34 (units unknown) (unknown) (unknown) (no date) (unknown) (unknown) Signed By:<Electronically signed by Tyson Bui MD> (units unknown) (unknown) (unknown) (no date) (unknown) (unknown) Study performed: (units unknown) (unknown) (unknown) (no date) (unknown) (unknown) Surgeon: Tyson Bui (units unknown) (unknown) (unknown) (no date) (unknown) (unknown) The patient was then turned around a digital rectal examination accomplished. (units unknown) (unknown) (unknown) (no date) (unknown) (unknown) The scope was introduced into the rectum and advanced to the cecum as identified (units unknown) (unknown) (unknown) (no date) (unknown) (unknown) The scope was slowly withdrawn carefully examining the mucosa for any defects or (units unknown) (unknown) (unknown) (no date) (unknown) (unknown) Time of procedure: 14:04 (units unknown) (unknown) (unknown) (no date) (unknown) (unknown) advanced under direc t visualization to what appeared to be the efferent limb. (units unknown) (unknown) (unknown) (no date) (unknown) (unknown) anastomosis). (units unknown) (unknown) (unknown) (no date) (unknown) (unknown) appeared to be some retained food debris in this location in addition to mucosal (units unknown) (unknown) (unknown) (no date) (unknown) (unknown) area. This obscured much of the mucosal examination. I therefore could not (units unknown) (unknown) (unknown) (no date) (unknown) (unknown) by the appendiceal orifice and ileocecal valve. The scope was slowly withdrawn (units unknown) (unknown) (unknown) (no date) (unknown) (unknown) decompressed, the sc ope was then removed from the patient who tolerated the (units unknown) (unknown) (unknown) (no date) (unknown) (unknown) details. The scope w as introduced into the mouth through the bite block and (units unknown) (unknown) (unknown) (no date) (unknown) (unknown) exudate that appeare d to be from a pill that has recently dissolved in this (units unknown) (unknown) (unknown) (no date) (unknown) (unknown) gastric folds. GEJ w as at 35 cm from the incisors. No acute erosive changes no (units unknown) (unknown) (unknown) (no date) (unknown) (unknown) gastric side. No stenosis. (units unknown) (unknown) (unknown) (no date) (unknown) (unknown) histopathologic analysis and exclusion of H pylori. The GJ anastomosis was (units unknown) (unknown) (unknown) (no date) (unknown) (unknown) identify a clear-cut lumen that would be consistent with an afferent limb. (units unknown) (unknown) (unknown) (no date) (unknown) (unknown) lesions. Retroflexed views were accomplished in the stomach. The stomach was (units unknown) (unknown) (unknown) (no date) (unknown) (unknown) next 8 weeks would b e appropriate to confirm mucosal healing. 3. Timing of (units unknown) (unknown) (unknown) (no date) (unknown) (unknown) nonthrombosed hemorrhoids. (units unknown) (unknown) (unknown) (no date) (unknown) (unknown) procedure well. (units unknown) (unknown) (unknown) (no date) (unknown) (unknown) removed with cold snare. The patient had grade 2-3 internal nonbleeding (units unknown) (unknown) (unknown) (no date) (unknown) (unknown) repeat colonoscopy w ill be contingent on polyp histology. (units unknown) (unknown) (unknown) (no date) (unknown) (unknown) strictures no mass lesions. The esophagus was unremarkable. (units unknown) (unknown) (unknown) (no date) (unknown) (unknown) taken from the mucos a for histopathologic analysis at this location. (units unknown) (unknown) (unknown) (no date) (unknown) (unknown) the gastric pouch wa s rather erythematous. Biopsies were acquired for (units unknown) (unknown) (unknown) (no date) (unknown) (unknown) the left lateral decubitus position. Please see anesthesia notes for sedation (units unknown) (unknown) (unknown) (no date) (unknown) (unknown) to carefully examine the mucosa for any defects or lesions. Multiple direct (units unknown) (unknown) (unknown) (no date) (unknown) (unknown) to extend into what I believe was the afferent limb. A couple of biopsies were (units unknown) (unknown) (unknown) (no date) (unknown) (unknown) views were made thro ugh the dentate line for exclusion of pathology. The colon (units unknown) (unknown) (unknown) (no date) (unknown) (unknown) was decompressed sco pe removed from the patient who tolerated the procedure (units unknown) (unknown) (unknown) (no date) (unknown) (unknown) was obtained. The patient was brought into the procedure room and placed into (units unknown) (unknown) (unknown) (no date) (unknown) (unknown) well. (units unknown) (unknown) (unknown) (no date) (unknown) (unknown) widely patent. There was a single retained suture that could be seen on the (units unknown) (unknown) Social History date description facility 2023-03-31 00:00 Never smoked tobacco (finding) [facility] Vital Signs date measurement value units 2023-03-31 00:00 BMI 34.4 kg/m2 2023-03-31 00:00 BP_diastolic 73 mmHg 2023-03-31 00:00 BP_systolic 131 mmHg 2023-03-31 00:00 heart_rate 87 /min 2023-03-31 00:00 height_metric 170.18 cm 2023-03-31 00:00 height_standard 67 in 2023-03-31 00:00 o2_saturation 100 % 2023-03-31 00:00 respiration_rate 22 /min 2023-03-31 00:00 temperature_metric 36.17 C 2023-03-31 00:00 temperature_standard 97.1 F 2023-03-31 00:00 weight_metric 99.79 kg 2023-03-31 00:00 weight_standard 220 lb
[2023-05-09] MEDS ORDERED: SODIUM CHLORIDE 0.9% 1,000 ML IV STA (14:26)
[2023-05-09] MEDS ORDERED: DROPERIDOL 5 MG/2 ML VIAL IVP STA (14:26)
[2023-05-09] MEDS ORDERED: diphenhydrAMINE INJ 50 MG/ML VIAL IVP STA (14:28)
[2023-05-09] MEDS ORDERED: fentaNYL 100 MCG/2 ML VIAL IVP STA (14:29)
[2023-05-09 14:40] LABS: BASOPHILS # (AUTO) 0.1 10^3/uL (0.0-0.1); BASOPHILS % (AUTO) 0.6 %; EOSINOPHILS % (AUTO) 0.3 %; HCT - HEMATOCRIT 40.3 % (37.0-47.0); HGB - HEMOGLOBIN 13.1 g/dL (12.0-16.0); LYMPHOCYTES # (AUTO) 2.8 10^3/uL (1.5-3.5); LYMPHOCYTES % (AUTO) 30.4 %; MEAN CORPUSCULAR HEMOGLOBIN 30.8 pg (27.0-31.0); MEAN CORPUSCULAR HGB CONC 32.5 g/dL (32.0-36.0); MEAN CORPUSCULAR VOLUME 94.8 fL (81.0-99.0); MEAN PLATELET VOLUME 9.4 fL (7.9-10.8); MONOCYTES # (AUTO) 0.6 10^3/uL (0.0-1.0); MONOCYTES % (AUTO) 6.2 %; NEUTROPHILS # (AUTO) 5.6 10^3/uL (1.5-6.6); NEUTROPHILS % (AUTO) 61.8 %; NRBC ABSOLUTE COUNT (AUTO) 0.04 x10^3/uL; NUCLEATED RED BLOOD CELLS AUTO 0.4 /100WBC; PLT - PLATELET COUNT 299 10^3/uL (130-450); RED BLOOD COUNT 4.25 10^6/uL (4.20-5.40); RED CELL DISTRIBUTION WIDTH 14.6 % (12.0-15.0); WHITE BLOOD COUNT 9.1 x10^3/uL (4.8-10.8)
[2023-05-09 14:49] LABS: PT - PROTHROMBIN TIME 11.8 secs (9.9-12.6)
[2023-05-09 14:58] LABS: ALBUMIN 3.1 g/dL (3.2-5.5); CALCIUM 8.1 mg/dL (8.5-10.3); CREATININE 0.8 mg/dL (0.4-1.0); CRP - C-REACTIVE PROTEIN 1.9 mg/dL (0-1.0); MAGNESIUM 1.3 mg/dL (1.7-2.8); POTASSIUM 2.6 mmol/L (3.5-5.0); TOTAL PROTEIN 6.1 g/dL (6.7-8.2)
[2023-05-09] MEDS ORDERED: POTASSIUM CHLOR 10 MEQ/100 ML 10 MEQ/100 ML BAG IV STA (15:33)
[2023-05-09] MEDS ORDERED: POTASSIUM CHLORIDE 20 MEQ TABLET PO STA (15:34)
[2023-05-09] MEDS ORDERED: MAGNESIUM OXIDE 400 MG TABLET PO SCH (16:00)
[2023-05-09 16:59] LABS: BILIRUBIN,URINE NEGATIVE (NEGATIVE); GLUCOSE, URINE (UA) NEGATIVE (NEGATIVE); KETONES,URINE (UA) 15 mg/dL (NEGATIVE); LEUKOCYTE ESTERASE, URINE NEGATIVE (NEGATIVE); NITRITE,URINE NEGATIVE (NEGATIVE); OCCULT BLOOD,URINE NEGATIVE (NEGATIVE); PROTEIN,URINE NEGATIVE (NEGATIVE); UROBILINOGEN,URINE 1 (NORMAL) E.U./dL (NORMAL)
[2023-05-09] MEDS ORDERED: iohexoL-300 100 ML VIAL ONE (16:59)
[2023-05-09 17:01] LABS: CLARITY,URINE CLEAR (CLEAR)
--- NOTE | 2023-05-09 17:18 | ED Physician Documentation ---
History of Present Illness - Stated complaint Stated Complaint: EXTREME PX,DISCOMFORT - Chief complaint Chief Complaint: Back Pain - Additonal information Additional information: Patient is a 52-year-old female presenting to the emergency department with chief complaint of back pain. Reports history of chronic back pain managed with Suboxone. Underwent nerve root injection on 05/06 at her pain specialist with the [facility]. Was otherwise doing well until last night when she awoke with increasing pain and shooting electrical sensations in her lower extremities. Denies any fever, nausea, vomiting, saddle paresthesias, loss of bowel or bladder control. Review of Systems Constitutional: denies: Fever Eyes: denies: Loss of vision Ears: denies: Loss of hearing Nose: denies: Rhinorrhea / runny nose Throat: denies: Dental pain / toothache Cardiac: denies: Chest pain / pressure Respiratory: denies: Dyspnea GI: denies: Abdominal Pain : denies: Dysuria Skin: denies: Rash Musculoskeletal: reports: Back pain. denies: Neck pain Neurologic: denies: Generalized weakness, Focal weakness, Numbness PD PAST MEDICAL HISTORY - Past Medical History Past Medical History: Yes Cardiovascular: Arrhythmia, Other Respiratory: None Neuro: None Endocrine/Autoimmune: None GI: Chronic constipation, Other SERICULTURIST: Ovarian cysts : None HEENT: None Psych: None Musculoskeletal: Chronic back pain Derm: None - Past Surgical History Past Surgical History: Yes General: Appendectomy, Gastric surgery /SERICULTURIST: Hysterectomy, Oophrectomy Cardiovascular: Pacemaker - Present Medications Home Medications: Ambulatory Orders Medication Instructions Recorded Confirmed Gabapentin [Neurontin] 400 mg PO BID 11/01/21 03/14/23 Amitriptyline HCl 100 mg PO DAILY 01/17/23 03/14/23 Buprenorphine HCl/Naloxone HCl 0.2 mg PO BID 01/17/23 03/14/23 [Suboxone 8-2 mg Tab] Folic Acid 1 mg PO DAILY 01/17/23 03/14/23 Meloxicam [Mobic] 7.5 mg PO DAILY 01/17/23 03/14/23 Lidocaine Patch 5% [Lidoderm Patch] 1 patch TOP DAILY PRN #10 patch 05/09/23 diazePAM [Valium] 5 mg PO TID PRN #3 tablet 05/09/23 - Allergies Allergies/Adverse Reactions: Allergies Allergy/AdvReac Type Severity Reaction Status Date / Time codeine Allergy Rash Verified 05/09/23 12:27 Sulfa (Sulfonamide Allergy Rash Verified 05/09/23 12:27 Antibiotics) buprenorphine [From Butrans] AdvReac Unknown Verified 05/09/23 12:27 morphine AdvReac Headache Verified 05/09/23 12:27 - Social History Does the pt smoke?: No Smoking Status: Never smoker Does the pt drink ETOH?: Yes Does the pt have substance abuse?: No - Immunizations Immunizations are current?: Yes Immunizations: TDAP >10years/unknown - POLST Patient has POLST: No PD ED PE NORMAL - Vitals Vital signs reviewed: Yes (Tachycardic) - General General: Alert and oriented X 3, Well developed/nourished, Other (Patient a cutely distressed sitting straight up in her gurney holding her self with rigid stillness) - HEENT HEENT: Atraumatic, PERRL - Neck Neck: Supple, no meningeal sign - Cardiac Cardiac: RRR - Respiratory Respiratory: No respiratory distress - Abdomen Abdomen: Normal bowel sounds - Female Female : Deferred - Rectal Rectal: Deferred - Back Back: Other (Injection site is identified in the low lumbar spine, no erythema or induration) - Extremities Extremities: No deformity - Neuro Neuro: Alert and oriented X 3, 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 Relevant findings are: Sinus rhythm with rate 116 bpm. Normal axis. Normal VA, QRS, QTc intervals. No ST segment elevations or T wave inversions. - Labs Labs: Laboratory Tests 05/09/23 05/09/23 05/09/23 14:31 14:31 14:31 WBC 9.1 RBC 4.25 Hgb 13.1 Hct 40.3 MCV 94.8 MCH 30.8 MCHC 32.5 RDW 14.6 Plt Count 299 MPV 9.4 Neut # (Auto) 5.6 Lymph # (Auto) 2.8 [place] # (Auto) 0.6 Eos # (Auto) 0.0 Baso # (Auto) 0.1 Absolute Nucleated RBC 0.04 Nucleated RBC % 0.4 ESR PT 11.8 INR 1.0 Sodium 137 Potassium 2.6 L Chloride 98 L Carbon Dioxide 27 Anion Gap 12.0 BUN 12 Creatinine 0.8 Estimated GFR (MDRD) 75 L Glucose 112 H Lactic Acid Calcium 8.1 L Magnesium 1.3 L Total Bilirubin 1.0 AST 120 H ALT 61 H Alkaline Phosphatase 268 H Total Creatine Kinase 89 C-Reactive Protein 1.9 H Total Protein 6.1 L Albumin 3.1 L Globulin 3.0 Albumin/Globulin Ratio 1.0 Lipase 23 Urine Color Urine Clarity Urine pH Ur Specific [place] Urine Protein Urine Glucose (UA) Urine Ketones Urine Occult Blood Urine Nitrite Urine Bilirubin Urine Urobilinogen Ur Leukocyte Esterase Ur Microscopic Review Urine Culture Comments 05/09/23 05/09/23 05/09/23 14:31 14:31 16:51 WBC RBC Hgb Hct MCV MCH MCHC RDW Plt Count MPV Neut # (Auto) Lymph # (Auto) [place] # (Auto) Eos # (Auto) Baso # (Auto) Absolute Nucleated RBC Nucleated RBC % ESR 5 PT INR Sodium Potassium Chloride Carbon Dioxide Anion Gap BUN Creatinine Estimated GFR (MDRD) Glucose Lactic Acid 2.1 Calcium Magnesium Total Bilirubin AST ALT Alkaline Phosphatase Total Creatine Kinase C-Reactive Protein Total Protein Albumin Globulin Albumin/Globulin Ratio Lipase Urine Color YELLOW Urine Clarity CLEAR Urine pH 6.0 Ur Specific [place] 1.010 Urine Protein NEGATIVE Urine Glucose (UA) NEGATIVE Urine Ketones 15 H Urine Occult Blood NEGATIVE Urine Nitrite NEGATIVE Urine Bilirubin NEGATIVE Urine Urobilinogen 1 (NORMAL) Ur Leukocyte Esterase NEGATIVE Ur Microscopic Review NOT INDICATED Urine Culture Comments NOT INDICATED PD Medical Decision Making - ED course Complexity details: reviewed old records, reviewed results, re-evaluated patient, considered differential, d/w patient ED course: Patient is a 52-year-old female presenting to the emergency department with acute on chronic back pain after nerve block injection by her pain specialist. Tachycardic but afebrile and otherwise hemodynamically stable on arrival to the emergency department. Significantly distressed on arrival to the emergency department without focal or lateralizing neurologic deficit. Injection site was identified and was otherwise clean, dry and without indications of infection or inflammation. Patient denied saddle paresthesias, loss of bowel bladder control or other clear red flag symptoms for spinal cord compression. IV access was obtained and she was given doses of fentanyl as well as droperidol, Benadryl and gabapentin for pain control. Her tachycardia slowly resolved with these medications. I obtained comprehensive labs which jose angel rated a very minimal elevation in C-reactive protein but no significant leukocytosis or elevation in ESR. She was noted to be hypokalemic and was given potassium repletion here in the emergency department. Her renal function was within normal limits. Additionally she had a mild elevation in AST, ALT as well as alkaline phosphatase. On reevaluation she endorsed for having alcoholic beverages the evening before and I believe that this is likely secondary to a very minimal case of alcoholic hepatitis. I did obtain CT imaging of her thoracic spine which demonstrated degenerative changes but no abnormal fluid collections, compressive masses or other findings that would be of imminent concern for developing spinal cord compression. On reevaluation patient was found to be resting much more comfortably. I had a detailed discussion with her about signs and symptoms that would be of imminent concern for spinal cord compression or infection. We discussed strategies for pain management and I did express my concern that given that she is currently on 2 different sedating medications, Suboxone and gabapentin the addition of more medication could be dangerous but in the interest of shared decision making I did agree to a very short course of Valium. We discussed strategies to such as taking half and Rao doses until we are certain how this medication will impact with her. Prescription was sent to her preferred pharmacy. She was encouraged to return to the emergency department for new or worsening symptoms or to follow-up with her primary care doctor as needed. Departure - Departure Disposition: 01 Home, Self Care Clinical Impression: Back pain Qualifiers: Back pain location: low back pain Chronicity: chronic Back pain laterality: midline Sciatica presence: without sciatica Qualified Code(s): M54.50 - Low back pain, unspecified Prescriptions: Lidocaine Patch 5% [Lidoderm Patch] 1 patch TOP DAILY PRN #10 patch PRN Reason: pain diazePAM [Valium] 5 mg PO TID PRN #3 tablet PRN Reason: Spasms Comments: Thank you for allowing us to care for you today at [facility]. Today in the emergency department your evaluated for any possible life- threatening medical emergency. Overall the testing in the emergency department today including your blood work, and the CT scan of your lumbar spine were reassuring. There is no evidence of new injury or developing infection to your back at this time. As we discussed I will be writing you for a very small number of diazepam, also known as Valium to help with your symptoms at home. I have also written for a topical Lidoderm patch for your use as needed. Please continue to take your previously prescribed gabapentin and Suboxone. I recommend taking small half and quarter doses of the Valium only as needed until you are familiar with how this medication affects you. Please be aware that there is a risk when using multiple sedating medications for overdose/oversedation. Is importantly follow-up with your primary care doctor as well as with your pain management doctor as soon as possible. If it anytime you develop new or worsening symptoms such as worsening pain, loss of bowel bladder control, weakness in your lower extremities or numbness in the urogenital area that you return to the emergency department for reevaluation. Discharge Date/Time: 05/09/23 18:46
[2023-05-09] MEDS ORDERED: GABAPENTIN 100 MG CAPSULE PO STA (17:32)
--- NOTE | 2023-05-09 17:59 | CT Report ---
PROCEDURE: CT lumbar spine with contrast INDICATIONS: Pain after spinal injection CONTRAST: 100omni 300 TECHNIQUE: After the administration of intravenous Isovue contrast, 3 mm thick sections acquired from the T12 le sarahy to the sacrum. Sagittal and coronal reformats were constructed. For radiation dose reduction, t he following was used: automated exposure control, adjustment of mA and/or kV according to patient s ize. COMPARISON: 08/25/2018 FINDINGS: Image quality: Excellent. Bones: There is normal bony alignment. No acute vertebral body compression fractures. No suspiciou s lytic or blastic bony lesions. Central spinal caliber is of normal overall caliber. No pars defec ts. No abnormal enhancement T12-L1: Normal in appearance. L1-L2: Normal in appearance. L2-L3: Normal in appearance. L3-L4: Disc space narrowing and mild disc bulge results in mild central stenosis. No foraminal sten osis. L4-L5: Mild disc space narrowing and circumferential disc bulge results in mild central stenosis. N o foraminal stenosis. L5-S1: Normal in appearance. Soft tissues: No retroperitoneal masses or hematomas. Visualized aorta is normal in caliber. Hepat ic fatty infiltration, partially imaged IMPRESSION: Mild degenerative disc disease L3-4 and L4-5 without significant central stenosis. No evidence of abnormal enhancement, abscess or lytic lesion Reviewed by: Pavan Latham MD on 05/09/2023 4:58 PM AKKARLO Approved by: Pavan Latham MD on 05/09/2023 4:58 PM AKKARLO Station ID: [id number]
[2023-05-09] MEDS ORDERED: iohexoL-300 100 ML VIAL IVP ONE (18:15)
[2023-05-09 18:49] VITALS: BP 126/69
== END 2023-05-09 18:46 | disposition home or self-care (01) ==
LOC: ED 11:50
DX: M54.50 Low back pain, unspecified (principal); Z79.899 Other long term (current) drug therapy
CPT/HCPCS: 36415; 72132; 80053; 81003; 82550; 83605; 83690; 83735; 85025; 85610; 85651; 86140; 93005; 96365; 96366; 96375; 99285; A9270; J1200; Q9967; 81001; 87086